=== PATIENT | male | born 1980 | race African-American/Black ===

== ENCOUNTER 2019-02-02 01:16 | Inpatient (IN) | payer OTHER ==
[2019-02-02] VITALS (11 sets, daily range): BP systolic 110–149; BP diastolic 78–101
[~2019-02-02] VITALS: Ht 182.9 cm; Wt 63.5 kg
--- NOTE | ~2019-02-02 | EMS ---
[facility] [address] [place] [address] EMS Patient Care Report Name: KHOI ROLLINS Room #: 237-P ADM IN M.R.#: [id number] Admission: 02/02/19 ������������������ Attend Phys: Glenna Abel Discharge: ������������������ Date of : 76 Report #: [id number] THIS REPORT FOR: //name// Report Transmitted: 02/03/2019 09:10 EMS Care Summary [place], [place]/[facility] Incident [id number] @ 02/02/2019 00:48 Incident Location [address] [place] [address] [address] [place] [address] Patient KHOI ROLLINS Male, 38 Years 1980 Patient Address homeless Patient History Hypertension,Human Immunodeficiency Virus Disease (HIV/AIDS),Depression,Anxiety,Pancreatitis, Patient Allergies Acetaminophen,Morphine,Fentanyl,Ibuprofen,Other drug allergy, Patient Medications Other, Chief Complaint ABDOMINAL PAIN Disposition Transported No Lights/Leeds Dispatch Reason Abdominal Pain/Problems Transported To [facility] Narrative M30 DISPATCHED TO RESIDENCE ON A REPORT OF AN ABDOMINAL PAIN. UPON ARRIVAL ON SCENE EMS FIND 38/M PT STANDING OUTSIDE OF RESIDENCE. PT APPROACHED AMBULANCE WHEN EMS ARRIVED ON SCENE. PT STATED HE WAS HAVING ABDOMINAL PAIN, DIARRHEA, [facility] [address] [place] [address] EMS Patient Care Report Name: KHOI ROLLINS Room #: 237-P [facility] IN M.R.#: [id number] Admission: 02/02/19 ������������������ Attend Phys: Glenna Abel Discharge: ������������������ Date of : 76 Report #: [id number] AND VOMITING FOR THE PAST COUPLE DAYS WITH NO RELIEF IN SYMPTOMS. PT STATED HE BELIEVED THERE MIGHT HAVE BEEN WHAT HE THOUGHT WAS BLOOD IN HIS VOMIT. PT AMBULATORY ON SCENE AND ASSISTED INSIDE AMBULANCE FOR FURTHER EVALUATION. PT SEATED ON EMS STRETCHER IN POSITION OF COMFORT WITH STRETCHER GUARDRAILS PLACED IN UPRIGHT LOCKED POSITION AND SEATBELTS FASTENED. PT VITALS OBTAINED, AND SUPPORTIVE CARE PROVIDED. PT CONDITION CONTINUALLY MONITORED EN ROUTE TO [facility]. NO NOTICEABLE CHANGES IN PT CONDITION DURING TRANSPORT TO RECEIVING FACILITY. UPON ARRIVAL TO [facility] PT MOVED INTO FACILITY ER ON EMS STRETCHER, WHERE PT WAS THEN ABLE TO SELF TRANSFER WITH ASSISTANCE FROM EMS ONTO ER HOSPITAL BED WITH INCIDENT. PT REPORT GIVEN TO RECEIVING NURSING STAFF AND TRANSFER OF PT CARE COMPLETED. Initial Vitals @01:00P: 109,R: 18,BP: 126/93,Pain: 10/10,GCS: 15,SpO2: 100,Revised Trauma: 12, @01:01P: 100,R: 18,BP: 137/84,Pain: 10/10,GCS: 15,CO: 23,SpO2: 100,Revised Trauma: 12, Assessments @01:00MENTAL:Time Oriented,Person Oriented,Event Oriented,Place Oriented,SKIN:HEENT:Head/Face: No Abnormalities,Neck/Airway: No Abnormalities,LUNG SOUNDS:General: Nausea,General: Diarrhea,General: Vomiting,Left Upper: Tenderness,Right Upper: Tenderness,Right Lower: Tenderness,Left Lower: Tenderness,ABDOMEN:General: Nausea,General: Diarrhea,General: Vomiting,Left Upper: Tenderness,Right Upper: Tenderness,Right Lower: Tenderness,Left Lower: Tenderness,PELVIS//GI:EXTREMITIES:Left Arm: No Abnormalities,Right Arm: No Abnormalities,PULSE:NEURO:No Abnormalities, Impression Abdominal Pain Procedures @00:58ALS AssessmentResponse: UnchangedSucceeded@00:59StretcherResponse: Unchanged Timeline 00:46,Call Received 00:46,Dispatch Notified 00:48,Dispatched 00:49,En Route 00:57,On Scene 00:57,At Patient 00:58,ALS Assessment,Response: UnchangedSucceeded, 00:59,Stretcher,Response: Unchanged 01:00,BP: 126/93 M,PULSE: 109,RR: 18 R,SPO2: 100 Ox,ETCO2: ,BG: ,PAIN: 10,GCS: 15, 01:01,Depart Scene [address] [address] EMS Patient Care Report Name: KHOI ROLLINS Room #: 237-P ADM IN R.#: [id number] Admission: 02/02/19 ������������������ Attend Phys: Glenna Abel Discharge: ������������������ Date of : 76 Report #: [id number] 01:01,BP: 137/84 M,PULSE: 100,RR: 18 R,SPO2: 100 Ox,ETCO2: ,BG: ,PAIN: 10,GCS: 15, 01:13,At Destination 01:25,Call Closed Disclaimer v1.1 Copyright 2019 [employer] This EMS Care Summary contains data elements from the applicable legal record (which may be displayed differently). It is designed to provide pertinent information for the following purposes: continuity of care, clinical quality, and state data reporting. The complete legal record is available to ED staff and administrators of the receiving hospital in [employer] Patient Tracker. All data is provided "as is."
[~2019-02-02 01:16] MED LIST: AMLODIPINE; AMLODIPINE BESYL5 MG; ANTIVIRAL PO; ASPIR 8181 MG PO; ASPIRIN81 M2 PO; AUGMENTIN 875-1 EACH PO; BACTRIM DS TAB1 EACH PO; BENTYL 20 MG TA20 M1 PO; CARAFATE 1 GM TA1 GM PO; CARAFATE 11 GM/10 M1 PO; CARVEDILOL3.125 MG PO; CIPROFLOXACIN500 M1 PO; CIPROFLOXIN HC2.5 M1 OTIC; COREG6.25 MG PO; COZAAR 50 MG TA50 M1 PO; CREON; CYMBALTA20 MG; DIFLUCAN200 MG PO; FOLIC ACID1 MG PO; HYDROXYZINE HCL10 M1; KEFLEX500 M1 PO; LEVAQUIN 500 M500 MG PO; LEVAQUIN 750 M750 MG PO; LIDOCAINE1 EACH TRANSDERM; LIDOPATCH1 EACH TOP; LISINOPRIL2.5 MG PO; MS CONTIN 60 MG60 M1; NORVASC5 MG PO; ONDANSETRON HCL4 M2 PO; OXYCODON-ACETA1 EAC1 PO; OXYCODONE HCL 55 MG PO; OXYCODONE HCL E15 MG PO; OXYCODONE HCL10 MG PO; OXYCODONE HCL30 MG; OXYCONTIN10 M1 PO; OXYCONTIN20 M1 PO; PANCRELIPASE PO; PANTOPRAZOLE SO40 M1 PO; PHENADOZ25 MG RC; PRILOSEC 20 MG20 MG PO; PROMS25 WY RECTAL; PROTONIX40 M1 PO; REGLAN 10 MG TA10 MG PO; REMERON15 M1; REMERON15 M2 PO; REMERON15 MG PO; SCOPOLAMINE1 EACH TRANSDERM; SPIRONOLACTONE25 MG PO; STRIBILD TABLE1 EACH PO; TRAMADOL 50 MG50 MG PO; TRANSDERM-SCOP1 EACH TRANSDERM; VANCOCIN 125 M125 M1 PO; VITAMIN B-1100 M1 PO; ZANTAC 150MG T150 M1; ZANTAC 150MG T150 MG PO; ZOFRAN ODT4 MG PO; ZOFRAN4 MG PO; ZPAK PO
[2019-02-02 02:08] LABS: HEMATOCRIT 26.8 % (42.0-52.0); HEMOGLOBIN 8.5 gm/dL (14.0-18.0); MCHC 31.7 g/dL (28.0-37.0); RDW 19.4 % (10.5-14.5)
[2019-02-02 02:10] LABS: ABSOLUTE NEUTROPHILS 1.4 thou/uL (1.4-8.2); BASOPHILS 1.8 % (0.0-2.0); EOSINOPHILS 1.5 % (0.0-3.0); LYMPHOCYTES 50.2 % (24.0-44.0); MCH 26.1 pg (26.0-34.0); MCV 82.3 fL (80.0-100.0); MONOCYTES 7.2 % (1.0-8.0); PLATELET COUNT 232 thou/uL (150-400); POLYS 39.3 % (36.0-66.0); RBC 3.26 mil/uL (4.50-6.00); WBC 3.6 thou/uL (4.0-11.0)
[2019-02-02 02:11] LABS: URINE BILIRUBIN NEGATIVE (Negative); URINE BLOOD NEGATIVE (Negative); URINE CLARITY CLEAR; URINE COLOR YELLOW; URINE GLUCOSE-RANDOM* NEGATIVE (Negative); URINE KETONES NEGATIVE (Negative); URINE LEUKOCYTES-REFLEX NEGATIVE (Negative); URINE NITRITE-REFLEX NEGATIVE (Negative); URINE PROTEIN (DIPSTICK) NEGATIVE (Negative); URINE SPECIFIC GRAVITY <= 1.005 (1.005-1.035); URINE UROBILINOGEN 0.2 E.U./dl (0.2-1.0)
[2019-02-02 02:17] LABS: ANION GAP 12 mmol/L (7-16); BUN 6 mg/dL (7-18); CALCIUM 8.6 mg/dL (8.5-10.1); CHLORIDE 100 mmol/L (98-107); CO2 24 mmol/L (21-32); CREATININE 0.7 mg/dL (0.7-1.3); GLUCOSE 95 mg/dL (74-106); POTASSIUM 3.5 mmol/L (3.5-5.1); SODIUM 136 mmol/L (136-145)
[2019-02-02 02:19] LABS: AMP/METHAMP Negative (Negative); BARBITURATES Negative (Negative); BENZODIAZEPINES Negative (Negative); COCAINE Negative (Negative); METHADONE Negative (Negative); OPIATES Negative (Negative); PCP Negative (Negative)
[2019-02-02 02:29] LABS: ALBUMIN 2.8 g/dL (3.4-5.0); LIPASE 242 U/L (73-393); SGOT 36 U/L (15-37); SGPT 23 U/L (30-65); TOTAL BILIRUBIN 0.1 mg/dL (<0.1-1.0); TOTAL PROTEIN 7.1 g/dL (6.4-8.2); TROPONIN-I 0.06 ng/mL (<0.06)
[2019-02-02 02:30] LABS: APTT 27.6 Seconds (24.5-32.8)
[2019-02-02 02:42] LABS: SALICYLATE 7.4 mg/dL (2.8-20.0)
[2019-02-02] MEDS ORDERED: PRILOSEC OTC20 MG PO (04:43)
[2019-02-02] MEDS ORDERED: NORCO 5-325 TA1 EAC1 PO (04:43)
[2019-02-02] MEDS ORDERED: ONDANSETRON ODT8 MG PO (04:43)
[2019-02-02 05:28] LABS: PHOSPHORUS 4.3 mg/dL (2.5-4.9)
[2019-02-02 05:56] LABS: FOLIC ACID 15.2 ng/mL (8.6-58.9)
[2019-02-02 06:44] LABS: HEMOGLOBIN 9.2 gm/dL (14.0-18.0); WBC 3.4 thou/uL (4.0-11.0)
[2019-02-02 06:46] LABS: HEMATOCRIT 29.7 % (42.0-52.0); MCH 25.7 pg (26.0-34.0); MCHC 30.9 g/dL (28.0-37.0); MCV 83.3 fL (80.0-100.0); PLATELET COUNT 249 thou/uL (150-400); RBC 3.57 mil/uL (4.50-6.00); RDW 19.3 % (10.5-14.5)
--- NOTE | 2019-02-02 08:13 | EKG ---
[address] [address] ELECTROCARDIOGRAM REPORT Name: AYOKHOI Newberry Room #: 170-9 ADM IN M.R.#: [id number] ������������������ Admission: 02/02/19 ������������������ Attend Phys: Oscar Be MD Discharge: ������������������ Date of : 76 Report #: [id number] ����������������������������������������������������������������� [id number] THIS REPORT FOR: //name// [facility] ED Test Date: 2019-02-02 Test Time: 03:01:09 Pat Name: KHOI RLOLINS Department: Room: 170 Gender: M Web Producer: monica : 1980 Requested By: Ernst Clayton Order Number: [id number] MD: Papa Waddell Measurements Intervals [place] Rate: 100 P: 49 NM: 154 QRS: 9 QRSD: 93 T: 44 QT: 368 QTc: 475 Interpretive Statements Sinus tachycardia Otherwise normal tracing No previous ECG available for comparison Electronically Signed On 02-02-2019 8:12:53 CDT by Papa Waddell [email or web address] ��������������������������������������������� <ELECTRONICALLY SIGNED> ���������������������������������������� By: Papa Waddell MD, [facility] ��������������������������������������������� 02/02/19 0812 030 030 Papa Waddell MD, FACC /EPI
[2019-02-02 08:38] LABS: ABSOLUTE NEUTROPHILS 1.7 thou/uL (1.4-8.2)
[2019-02-02 08:39] LABS: ANISOCYTOSIS 2+
[2019-02-02 08:40] LABS: ATYPICAL LYMPHS 2 %
[2019-02-02 11:10] LABS: % SATURATION 3 % (20-39); IRON 11 ug/dL (65-175); TIBC 333 ug/dL (250-450)
[2019-02-02 11:34] LABS: URINE BILIRUBIN NEGATIVE (Negative); URINE BLOOD NEGATIVE (Negative); URINE CLARITY CLEAR; URINE COLOR YELLOW; URINE GLUCOSE-RANDOM* NEGATIVE (Negative); URINE KETONES NEGATIVE (Negative); URINE LEUKOCYTES NEGATIVE (Negative); URINE NITRITE NEGATIVE (Negative); URINE PROTEIN (DIPSTICK) TRACE (Negative); URINE SPECIFIC GRAVITY <= 1.005 (1.005-1.035); URINE UROBILINOGEN 0.2 E.U./dl (0.2-1.0)
--- NOTE | 2019-02-02 13:36 | NUR ---
1210-RECEIVED PT FROM E.R.--VW
--- NOTE | 2019-02-02 17:21 | NUR ---
CALL TO EARLIER W UPDATE-NOT COVERING. CALL TO VIA BEEPER FOR UPDATE.ATIVAN FOR INCREASING RESTLESSNESS,HIGH CIWA.--VW
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
--- NOTE | 2019-02-02 18:40 | NUR ---
RETURNED CALL,ORDERS NOTED.--VW
--- NOTE | 2019-02-02 19:49 | NUR ---
WILL DO MRSA SWAB p NEXT DOSE OF ATIVAN.CARE TURNED OVER TO ONCOMING RN.--VW
[2019-02-03] VITALS (15 sets, daily range): BP systolic 108–144; BP diastolic 82–103
[2019-02-03 04:07] LABS: CALCIUM 8.5 mg/dL (8.5-10.1); CREATININE 0.6 mg/dL (0.7-1.3); POTASSIUM 4.1 mmol/L (3.5-5.1)
[2019-02-03 04:14] LABS: HEMATOCRIT 27.8 % (42.0-52.0); HEMOGLOBIN 8.7 gm/dL (14.0-18.0); MCH 26.1 pg (26.0-34.0); MCHC 31.4 g/dL (28.0-37.0); MCV 83.1 fL (80.0-100.0); RBC 3.34 mil/uL (4.50-6.00); RDW 19.2 % (10.5-14.5); WBC 6.3 thou/uL (4.0-11.0)
--- NOTE | 2019-02-03 08:08 | NUR ---
ASSUMED CARE OF PT AT 1900. PT SEDATED ON PRECEDEX PER ORDERS. PT ABLE TO IDENTIFY SELF. HE AKNOWLEDGES THAT HE IS AT A HOSPITAL, BUT DOES NO RECALL WHAT HOSPITAL FACILITY HE IS AT. PT IS ALSO FORGETFUL ON CURRENT HOSPITAL ADMISSION CIRCUMSTANCES AND NEED TO BE REMIDED EVERY TIME HE AWAKES. PT SR ON THE MONITOR. BP ELEVATED. ATIVAN GIVEN PER [facility] PROTOCOL. PT HAS BEEN COMPLAININ OF UPPER ABDOMINAL PAIN, WITH IMPROVEMENT WITH HYDROMORPHONE. PT APPEARS TO RESPOND TO VERBAL LIMIT SET BY RN. NO SIGNS OF BLEEDING NOTED THROUGH OUT THE SHIFT. PT MAKING PROGRESS TOWARDS GOALS.
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
[2019-02-03 19:07] LABS: CD3 % 92.7 % (57.5-86.2); CD4 % 50.6 % (30.8-58.5); CD4:CD8 1.19 (0.92-3.72); CD8 % 42.7 % (12.0-35.5)
[2019-02-04] VITALS (20 sets, daily range): BP systolic 119–153; BP diastolic 68–99
--- NOTE | 2019-02-04 05:27 | NUR ---
ASSUMED CARE OF PATIENT AT 1900. VSS, AFEBRILE. EXTREMELY UPSET THAT THE PHYSICIAN WOULD NOT GIVE HIM IV PAIN MEDS. OFFERED TRAMAADOL. REFUSED. STATES HIS STOMACH IS KILLING HIM. REQUESTS FOOD AND DRINK FREQUENTLY. Michelle ERAZO COURT RECORDER TO BEDSIDE, SPOKE WITH PATIENT ABOUT IV MEDICATION. DID ORDER ONE DOSE TORADOL. SEEMED TO HAVE DESIRED EFFECT PATIENT SLEPT OFF AND ON THROUGH THE NIGHT. DOES NOT APPEAR TO BE IN WITHDRAWAL AT THIS TIME, RESTING AND WATCHING TV. OF 529 HAS NOT ASKED FOR ANYMORE PAIN MEDS. STILL WAITING ON STOOL SAMPLE FOR OCCULT BLOOD. PROGRESSING SLOWLY TOWARDS POC GOALS.
[2019-02-04 05:34] LABS: HEMATOCRIT 25.8 % (42.0-52.0); HEMOGLOBIN 8.1 gm/dL (14.0-18.0); MCH 26.2 pg (26.0-34.0); MCHC 31.4 g/dL (28.0-37.0); MCV 83.4 fL (80.0-100.0); RBC 3.09 mil/uL (4.50-6.00); RDW 19.3 % (10.5-14.5); WBC 6.7 thou/uL (4.0-11.0)
[2019-02-04 05:45] LABS: CALCIUM 8.9 mg/dL (8.5-10.1); CREATININE 0.8 mg/dL (0.7-1.3); MAGNESIUM 1.9 mg/dL (1.8-2.4); PHOSPHORUS 3.3 mg/dL (2.5-4.9); POTASSIUM 4.1 mmol/L (3.5-5.1)
[2019-02-04 09:07] LABS: HAV IgM AB (ANTI-HAV IgM) Negative (Negative); HEPATITIS B SURFACE AG Negative (Negative); HEPATITIS C VIRUS AB 0.1 (0.0-0.9)
[2019-02-04] MEDS ORDERED: COZAAR 25 MG TA25 M1 PO (09:24)
[2019-02-04] MEDS ORDERED: TRAZODONE HCL50 MG PO (09:25)
[2019-02-04] MEDS ORDERED: CYMBALTA60 MG PO (09:26)
[2019-02-04] MEDS ORDERED: REMERON 30 MG T30 M1 PO (09:26)
--- NOTE | 2019-02-04 18:20 | NUR ---
Dr. Will called for update re: medical records from [place]. Reports communicated to MD. Decision made to perform CT abd and pelvis with IV and PO contrast to evalulate continued severe abdominal pain.
--- NOTE | 2019-02-04 18:50 | NUR ---
1st bottle oral contrast completed.
--- NOTE | 2019-02-04 21:00 | NUR ---
PATIENT ALERT AND ORIENTED X4, PAIN MILDLY CONTROLLED WITH MEDICATION. ON ROOM AIR. UP WITH STANDBY ASSISTANCE, STEADY ON FEET. TOOK PATIENT TO CAT SCAN, AWAITING RESULTS. REPORT GIVEN TO ONCOMING NURSE, TRANSFERRED TO ICU POD 3.
--- NOTE | 2019-02-05 03:25 | NUR ---
ASSUMED PT CARE AT ABOUT 2030. PT A/OX4, VITAL SIGN STABLE, ASSESSMENT CHARTED. PT COMPLAINED OF GENRALIZED ABDOMINAL PAIN, PAIN ADEQAUTELY MANAGED WITH PAIN MEDICATION. CIWA PROTOCOL IN PLACE, PT ASSESSED FOR WITHDRAWAL NEEDED. NICOTINE PATCH ORDERED AND GIVEN. PT REQUESTED TO GO OUTSIDE AND SMOKE. PT EDUCATED ON HOSPITAL POLICY REGARDING SMOOKING, WELL BENEFITS OF NOT SMOOKING. PT VERBALIZED UBDERSTANDING. PT OTHERWISE RESTED WELL THROUGH THE NIGHT. PROGRESSING TOWARD PLAN OF CARE. WILL CONTINMUE TO MONITOR.
[2019-02-05 04:33] VITALS: BP 142/96
[2019-02-05 07:20] VITALS: BP 140/98
[2019-02-05 11:13] VITALS: BP 111/81
[2019-02-05 16:13] VITALS: BP 138/99
--- NOTE | 2019-02-05 17:09 | HC ---
[facility] [place] [address] CONSULTATION Name: SHAWNYENNIKHOI Newberry Room #: 249-P [facility] IN M.R.#: [id number] Admission: 02/02/19 ������������������ Attend Phys: Glenna Abel Discharge: ������������������ Date of : 76 Report #: [id number] THIS REPORT FOR: //name// CC: SHANIQUE physician/PCP Glenna Abel DATE OF SERVICE: 02/04/2019 INFECTIOUS DISEASE CONSULTATION REASON FOR CONSULTATION: I was asked to evaluate concerning HIV infection and diarrhea. HISTORY OF PRESENT ILLNESS: The patient is a 38-year-old, on Stribild antiretroviral program longstanding for HIV infection, treated at [facility]. Also, has a history of chronic pancreatitis, alcohol abuse and polysubstance abuse. He presented on 02/02/2019 with complaints of hematemesis. He reports about 2-month history of diarrhea. Could not give much details otherwise. He has been in and out of multiple hospitals over the last several months. He has had workup including upper GI evaluation CT scans. No definitive diagnosis was established other than his chronic pancreatitis and upper GI erosions thought most likely related to his alcohol use. On presentation here, his stools were negative for blood. GI service is evaluating. CT scan showed evidence of constipation with large amount of stool in the colon. He has had soft stools today. No nausea or vomiting. Does complain of abdominal pain and has been asking for narcotics. The patient states that his HIV has been under reasonable control. It is undetectable. Does not know his CD4 count. ALLERGIES: CLONIDINE, TYLENOL, FENTANYL, IBUPROFEN, MORPHINE. MEDICATIONS: As noted on his MAR, on Stribild. He is on no prophylactic, antibiotic, antifungal agents. PAST MEDICAL HISTORY: Hypertension, HIV, ETOH, pancreatitis. FAMILY HISTORY: Noncontributory. SOCIAL HISTORY: Smoker of cigarettes and alcohol use. No tuberculosis exposure reported. REVIEW OF SYSTEMS: Denies any cough or sputum production. No chest pain or palpitations. No dysuria or frequency. No back pain. No other neurologic complaints. No rashes. Denies diabetes or thyroid disease. No bruising or bleeding issues outside of what is noted above. Denies any visual changes, headaches. Generally does not feel well. [facility] [address] [place] [address] CONSULTATION Name: KHOI ROLLINS Room #: 249-P [facility] IN [facility].#: [id number] Admission: 02/02/19 ������������������ Attend Phys: Glenna Abel Discharge: ������������������ Date of : 76 Report #: [id number] PHYSICAL EXAMINATION: VITAL SIGNS: He is afebrile and hemodynamically stable. GENERAL: He is alert, cooperative and pleasant, in no acute distress. He is lying in bed in the ICU. SKIN: Without rash or decubitus. No palpable adenopathy. HEENT: Eyes, without scleral icterus. Mouth without mucositis. NECK: Supple. LUNGS: Clear. HEART: Regular, without murmur, gallop or rub. ABDOMEN: Soft, no appreciable masses or hepatosplenomegaly. GENITOURINARY: External genitalia unremarkable without lesion. RECTAL: Not performed. EXTREMITIES: Without clubbing, cyanosis or edema. NEUROLOGIC: Nonfocal with no cranial nerve abnormalities. Strength in his upper and lower extremities was normal. Sensation intact. PSYCHIATRIC: Mood was normal without anxiety or evidence of depression. LABORATORY STUDIES: Reviewed. His hemoglobin is 8.1, white count 6.7, platelet count 172,000. Creatinine 0.8. Hepatitis A, B and C was negative. CT scan of the abdomen and pelvis with contrast showed thickening of the gastric antrum with constriction. Minimal left basilar ground glass infiltrate, minimal pneumobilia, chronic pancreatitis changes. Urinary bladder wall thickening thought due to incomplete distention, no bowel wall thickening. Stool studies were obtained. IMPRESSION: 1. A 38-year-old with human immunodeficiency virus, on treatment undetectable virus load, presents with complaints of diarrhea and hematemesis, so far no evidence of further bleeding. His constipation has resolved, now having loose soft stool. 2. Alcohol intoxication. 3. Gastrointestinal bleeding history. Unclear at this point in time if he is actually having diarrhea. There is no evidence of colitis on CT scan. He has had an upper endoscopy, which showed previous erosive disease. RECOMMENDATIONS: We will await CD4 count and check stool studies for bacterial culture, ova and parasite. We will start there and await further GI workup. May need lower endoscopy procedure to further evaluate this process. CMV cancer causes problem, but if his CD4 count is normal, I would think this would be less likely. He does have chronic pancreatitis and may well be loose stools related [address] [address] CONSULTATION Name: AYOKHOI Newberry Room #: 249-P ADM IN M.R.#: [id number] Admission: 02/02/19 ������������������ Attend Phys: Glenna Abel Discharge: ������������������ Date of : 76 Report #: [id number] to pancreatic insufficiency. We will observe off antibiotics. His antiretroviral will be restarted. ��������������������������������������������� <ELECTRONICALLY SIGNED> ���������������������������������������� By: Ernst Ann MD ��������������������������������������������� 02/05/19 1709 2131 0235 Ernst Ann MD /nt
--- NOTE | 2019-02-05 17:12 | NUR ---
PT IS BEEN SEEN BY INFECTIOUS DISEASE. GI AND HOSPITALSIT TODAY COMPLAINS OF ABDOMINAL PAIN TRAMADOL GIVEN . RECTAL SUPOSITORY GIVEN AND SMALL BOWEL MOVEMENT NOTED. UP IN ROOM VOIDS PER URINAL. PT IS HIV POSITIVE FAMILY IS SUPOSE TO BRING HIV MEDS BUT NOBODY EVER CAME. VITALS STABLE. WILL CONTINUE TO ASSESS AND MONITOR PER NURSING.
[2019-02-05 20:00] VITALS: BP 151/99
--- NOTE | 2019-02-06 02:56 | NUR ---
ASSUMED CARE AT START OF SHIFT PT REQUESTING IV PAIN MEDICATION , EXPLAIN TO PT THAT MD STOPPED IV MEDICATION AND PO WAS AVAILABLE, PT BECAME AGITATED AND RESTLESS , REQUESTED ICE CREAM AND GRAMHAM CRACKERS , COMPUTER SYSTEMS ENGINEER CALLED AND VISTRIAL GIVEN FOR RESTLESSNESS. PT SOON FELL ASLEEP, HAD TO AWAKEN PT TO TAKE VISTRAIL. INFORM PT THAT STOOL SAMPLE IS NEEDED AND COLLECTION HAT WAS PLACED IN TOLIET , DISCUSSED PLAN OF CARE WITH PT , VERBALIZED UNDERTSANDING AND AGREEABLE. PT RESTED WELL, PT ATE APPORX 6 CONTAINERS OF VANILLA ICE CREAM AND TOLERATED WELL WITH ABD PAIN OR NAUSEA. WILL CONINTUE TO MONITOR AND WILL REPORT CHANGES OR ABNORMAL FINDINGS.
[2019-02-06 04:28] VITALS: BP 129/93
[2019-02-06 08:00] VITALS: BP 148/99
[2019-02-06] MEDS ORDERED: REMERON15 MG PO (09:57)
[2019-02-06] MEDS ORDERED: TRAMADOL 50 MG50 MG PO (09:57)
[2019-02-06] MEDS ORDERED: PANCREAZE DR 11 EAC2 PO (09:58)
[2019-02-06 10:53] VITALS: BP 148/99
[2019-02-06 11:14] VITALS: BP 148/99
--- NOTE | 2019-02-06 11:14 | NUR ---
PATIENT ALERT AND ORIENTED X4, PAIN CONTROLLED. ON ROOM AIR. UP INDEPENDENTLY. DISCHARGE INSTRUCTIONS DISCUSSED, PICC LINE REMOVED. PRESCRIPTIONS GIVEN. PATIENT VERBALIZED UNDERSTANDING. NO SIGNS OF ACUTE DISTRESS NOTED. TRANSFERRED BY STAFF TO RIDE HOME.
== END 2019-02-06 11:17 | disposition home or self-care (01) | DRG 378 ==
LOC: ER 01:16 → ICU 05:06 → EROBS 05:06 → ICU 11:46
PROVIDERS: Emergency Medicine; Internal Medicine Gastroenterology; Nurse Practitioner; ADMIT Hospitalist
DX: K92.2 Gastrointestinal hemorrhage, unspecified (principal); I42.9 Cardiomyopathy, unspecified; E44.0 Moderate protein-calorie malnutrition; Z68.1 Body mass index [BMI] 19.9 or less, adult; M87.852 Other osteonecrosis, left femur; M87.851 Other osteonecrosis, right femur; K86.1 Other chronic pancreatitis; I10 Essential (primary) hypertension; F32.9 Major depressive disorder, single episode, unspecified; F41.9 Anxiety disorder, unspecified; F10.120 Alcohol abuse with intoxication, uncomplicated; D64.9 Anemia, unspecified; K59.00 Constipation, unspecified; D50.9 Iron deficiency anemia, unspecified; K76.0 Fatty (change of) liver, not elsewhere classified; R19.7 Diarrhea, unspecified; K59.8 Other specified functional intestinal disorders; Z21 Asymptomatic human immunodeficiency virus [HIV] infection status; F17.210 Nicotine dependence, cigarettes, uncomplicated; Z76.5 Malingerer [conscious simulation]; Z79.899 Other long term (current) drug therapy; Z88.5 Allergy status to narcotic agent; Z88.8 Allergy status to other drugs, medicaments and biological substances
CPT/HCPCS: 10078; 10203; 27000

== ENCOUNTER 2019-02-11 19:11 | Emergency (ER) | payer OTHER ==
[~2019-02-11] VITALS: Ht 182.9 cm; Wt 56.7 kg
[~2019-02-11 19:11] MED LIST changes: +COZAAR 25 MG TA25 M1 PO; +CYMBALTA60 MG PO; +NORCO 5-325 TA1 EAC1 PO; +ONDANSETRON ODT8 MG PO; +PANCREAZE DR 11 EAC2 PO; +PRILOSEC OTC20 MG PO; +REMERON 30 MG T30 M1 PO; +TRAZODONE HCL50 MG PO
[2019-02-11 19:54] LABS: URINE BILIRUBIN NEGATIVE (Negative); URINE BLOOD NEGATIVE (Negative); URINE CLARITY CLEAR; URINE GLUCOSE-RANDOM* NEGATIVE (Negative); URINE KETONES NEGATIVE (Negative); URINE LEUKOCYTES 1+ (Negative); URINE NITRITE NEGATIVE (Negative); URINE PROTEIN (DIPSTICK) NEGATIVE (Negative); URINE SPECIFIC GRAVITY <= 1.005 (1.005-1.035); URINE UROBILINOGEN 0.2 E.U./dl (0.2-1.0)
[2019-02-11 19:55] LABS: URINE COLOR COLORLESS
[2019-02-11 20:10] LABS: SQUAMOUS >10 Many /LPF (0-3); URINE RBC 0-2 Rare /HPF (0-2); URINE WBC 6-15 Few /HPF (0-5)
[2019-02-11 20:11] LABS: BACTERIA 1-9 Few /HPF (None Seen); CASTS None Seen /LPF (None Seen); CRYSTALS None Seen /LPF (None Seen)
[2019-02-11 20:47] VITALS: BP 111/78
== END 2019-02-11 20:47 | disposition home or self-care (01) ==
LOC: ER 19:11
PROVIDERS: Nurse Practitioner
DX: R10.11 Right upper quadrant pain (principal); F17.210 Nicotine dependence, cigarettes, uncomplicated; I10 Essential (primary) hypertension; F32.9 Major depressive disorder, single episode, unspecified; F41.9 Anxiety disorder, unspecified; I42.9 Cardiomyopathy, unspecified; Z88.8 Allergy status to other drugs, medicaments and biological substances; Z88.6 Allergy status to analgesic agent; Z88.4 Allergy status to anesthetic agent; Z88.5 Allergy status to narcotic agent; Z21 Asymptomatic human immunodeficiency virus [HIV] infection status

== ENCOUNTER 2019-02-24 01:10 | Emergency (ER) | payer OTHER ==
[~2019-02-24] VITALS: Ht 182.9 cm; Wt 59.0 kg
[2019-02-24 02:07] LABS: HEMATOCRIT 33.2 % (42.0-52.0); HEMOGLOBIN 10.6 gm/dL (14.0-18.0); MCH 27.9 pg (26.0-34.0); MCHC 31.9 g/dL (28.0-37.0); MCV 87.4 fL (80.0-100.0); PLATELET COUNT 204 thou/uL (150-400); WBC 4.2 thou/uL (4.0-11.0)
[2019-02-24 02:13] LABS: URINE BILIRUBIN NEGATIVE (Negative); URINE BLOOD NEGATIVE (Negative); URINE CLARITY CLEAR; URINE COLOR YELLOW; URINE GLUCOSE-RANDOM* NEGATIVE (Negative); URINE KETONES NEGATIVE (Negative); URINE LEUKOCYTES-REFLEX NEGATIVE (Negative); URINE NITRITE-REFLEX NEGATIVE (Negative); URINE PROTEIN (DIPSTICK) NEGATIVE (Negative); URINE SPECIFIC GRAVITY <= 1.005 (1.005-1.035); URINE UROBILINOGEN 0.2 E.U./dl (0.2-1.0)
[2019-02-24 02:14] LABS: ANION GAP 12 mmol/L (7-16); BUN 7 mg/dL (7-18); CALCIUM 8.9 mg/dL (8.5-10.1); CHLORIDE 100 mmol/L (98-107); CO2 24 mmol/L (21-32); CREATININE 0.8 mg/dL (0.7-1.3); GLUCOSE 95 mg/dL (74-106); SODIUM 136 mmol/L (136-145)
[2019-02-24 02:20] LABS: ALBUMIN 3.2 g/dL (3.4-5.0); DIRECT BILIRUBIN < 0.1 mg/dL (<0.1-0.3); LIPASE 162 U/L (73-393); SGOT 43 U/L (15-37); SGPT 24 U/L (30-65); TOTAL BILIRUBIN < 0.1 mg/dL (<0.1-1.0); TOTAL PROTEIN 7.6 g/dL (6.4-8.2)
[2019-02-24 02:35] LABS: ABSOLUTE NEUTROPHILS 3.1 thou/uL (1.4-8.2); ANISOCYTOSIS 3+; PLATELET ESTIMATE NORMAL; POIKILOCYTOSIS 1+; POLYCHROMASIA 1+
[2019-02-24 02:36] LABS: LARGE PLATELETS FEW
[2019-02-24] MEDS ORDERED: BENTYL 20 MG TA20 M1 PO (05:01)
[2019-02-24] MEDS ORDERED: MOBIC15 MG PO (05:01)
[2019-02-24 05:39] VITALS: BP 118/84
== END 2019-02-24 05:42 | disposition home or self-care (01) ==
LOC: ER 01:10
PROVIDERS: Emergency Medicine
DX: K52.9 Noninfective gastroenteritis and colitis, unspecified (principal); F10.10 Alcohol abuse, uncomplicated; F17.210 Nicotine dependence, cigarettes, uncomplicated; I10 Essential (primary) hypertension; F32.9 Major depressive disorder, single episode, unspecified; F41.9 Anxiety disorder, unspecified; I42.9 Cardiomyopathy, unspecified; Z88.8 Allergy status to other drugs, medicaments and biological substances; Z88.6 Allergy status to analgesic agent; Z88.4 Allergy status to anesthetic agent; Z88.5 Allergy status to narcotic agent; Z21 Asymptomatic human immunodeficiency virus [HIV] infection status

== ENCOUNTER 2019-04-30 20:03 | Inpatient (IN) | payer OTHER ==
[~2019-04-30] VITALS: Ht 182.9 cm; Wt 65.3 kg
[~2019-04-30 20:03] MED LIST changes: +MOBIC15 MG PO
[2019-04-30 20:04] VITALS: BP 148/91
[2019-04-30 20:38] LABS: URINE BILIRUBIN NEGATIVE (Negative); URINE BLOOD NEGATIVE (Negative); URINE CLARITY CLEAR; URINE COLOR YELLOW; URINE GLUCOSE-RANDOM* NEGATIVE (Negative); URINE KETONES NEGATIVE (Negative); URINE NITRITE-REFLEX NEGATIVE (Negative); URINE PROTEIN (DIPSTICK) NEGATIVE (Negative); URINE UROBILINOGEN 0.2 E.U./dl (0.2-1.0)
[2019-04-30 20:39] LABS: URINE LEUKOCYTES-REFLEX 1+ (Negative)
[2019-04-30 20:49] LABS: BACTERIA-REFLEX None Seen /HPF (None Seen); CASTS None Seen /LPF (None Seen); CRYSTALS None Seen /LPF (None Seen); MUCUS None Seen strn/LPF (None Seen); SQUAMOUS None Seen /LPF (0-3); URINE RBC None Seen /HPF (0-2); URINE WBC-REFLEX 0-5 Rare /HPF (0-5)
[2019-04-30 20:57] LABS: ABSOLUTE NEUTROPHILS 2.2 thou/uL (1.4-8.2); BASOPHILS 1.4 % (0.0-2.0); EOSINOPHILS 7.1 % (0.0-3.0); HEMATOCRIT 38.8 % (42.0-52.0); HEMOGLOBIN 12.5 gm/dL (14.0-18.0); LYMPHOCYTES 35.8 % (24.0-44.0); MCH 28.7 pg (26.0-34.0); MCHC 32.1 g/dL (28.0-37.0); MCV 89.2 fL (80.0-100.0); MONOCYTES 11.5 % (1.0-8.0); PLATELET COUNT 219 thou/uL (150-400); POLYS 44.2 % (36.0-66.0); RBC 4.35 mil/uL (4.50-6.00); WBC 4.9 thou/uL (4.0-11.0)
[2019-04-30 21:00] LABS: CALCIUM 9.6 mg/dL (8.5-10.1); CREATININE 0.7 mg/dL (0.7-1.3); POTASSIUM 5.3 mmol/L (3.5-5.1)
[2019-04-30 21:07] LABS: ALBUMIN 3.6 g/dL (3.4-5.0); TOTAL BILIRUBIN 0.2 mg/dL (<0.1-1.0); TOTAL PROTEIN 7.6 g/dL (6.4-8.2)
[2019-04-30 21:48] LABS: ANISOCYTOSIS 2+; LARGE PLATELETS OCCASIONAL
[2019-04-30 21:49] LABS: SCHISTOCYTES RARE
--- NOTE | 2019-04-30 22:34 | NUR ---
PT STATED HE IS ALLERGIC TO FENTANYL. DR CORDOVA NOTIFIED.
[2019-05-01 02:05] VITALS: BP 148/91
--- NOTE | 2019-05-01 02:06 | NUR ---
HAND OFF TOOL PRINTED TO FLOOR AT THIS TIME
[2019-05-01 02:49] VITALS: BP 142/106
--- NOTE | 2019-05-01 03:51 | NUR ---
ADMITTED FROM ER UNDER 'S CARE. PAULINA ERAZO MOBILITY ENGINEER FOR SAW PT IN ER. AXOX4. AD SHANNON. GAIT STABLE. NPO AT THIS TIME. PER PROMOTIONS ASSISTANT NO ICE CHIPS, ONLY MOUTH SWABS. SWABS AT BEDSIDE. NICOTINE PATCH AND ATIVAN ORDERED PER PROMOTIONS ASSISTANT ORDER. PT IS ONLY NO ALLERGIC TO DILAUDID AND ER PHYSICIAN ORDERD DILAUDID X 2 UNTIL ATTENDING MD IN AM CAN ADDREESS PAIN MANAGEMENT. NO VSS. ALL QUESTIONS AND CONCERNS ANSWERED. NO S/S ACUTE DISTRESS NOTED OR REPORTED AT THIS TIME. WILL CONT TO MONITOR FOR ANY CHANGES IN CONDITION.
[2019-05-01 08:03] VITALS: BP 133/90
[2019-05-01 09:13] LABS: MAGNESIUM 1.8 mg/dL (1.8-2.4); PHOSPHORUS 3.4 mg/dL (2.5-4.9)
[2019-05-01 15:11] VITALS: BP 141/103
[2019-05-01 19:41] VITALS: BP 140/106
--- NOTE | 2019-05-01 20:28 | NUR ---
PATIENT ALERT AND ORIENTED WITH ABDOMINAL PAIN REQUESTING HIGHTER DOSE OF DILAUDID IV AND WANTING TO EAT. PATIENT FREQUENTLY USING CALL LIGHT FOR REQUESTS AND WALKING TO NURSING STATIONS FOR REQUESTS. NO BM THIS SHIFT BUT FREQUENT URINATION AND CONTINUE PAIN IN UPPER ABDOMINAL QUADRANTS. ACTIVE BOWELS SOUND THROUGHOUT ABDOMEN. PRIMARY AND GI PROVIDERS AWARE OF PATIENT REQUESTS.
--- NOTE | 2019-05-02 03:03 | NUR ---
ASSUMED CARE AROUND 1914. AXOX4. PERSISTENT PAIN TO ABD. TX PER MD ORDER. NO S/S ACUTE DISTRESS NOTED OR REPORTED AT THIS TIME. WILL CONT TO MONITOR FOR ANY CHANGES CONDITION.
[2019-05-02 04:47] LABS: CALCIUM 9.2 mg/dL (8.5-10.1); CREATININE 0.7 mg/dL (0.7-1.3); MAGNESIUM 1.9 mg/dL (1.8-2.4); POTASSIUM 4.5 mmol/L (3.5-5.1)
[2019-05-02 04:57] LABS: HEMATOCRIT 38.7 % (42.0-52.0); HEMOGLOBIN 12.3 gm/dL (14.0-18.0); MCH 28.6 pg (26.0-34.0); MCHC 31.8 g/dL (28.0-37.0); RBC 4.3 mil/uL (4.50-6.00); RDW 19.3 % (10.5-14.5); WBC 3.6 thou/uL (4.0-11.0)
[2019-05-02 08:00] VITALS: BP 142/107
[2019-05-02 15:00] VITALS: BP 134/96
--- NOTE | 2019-05-02 16:22 | NUR ---
Assumed patient care at 0715. Patient has spent the entire shift resting in bed. His blood pressure has been in the higher range; he has been asymptomatic. Patient rates his abdominal pain at a level "nine." Patient has been given Oxycodone 5mg po and Ativan 1mg per IV push x's two, so far during this shift; he denies any relief, although he has been sleeping in between doses. Patient denies any nausea and/or vomiting. He has been eating well and consuming plenty of fluids. Will continue to monitor.
[2019-05-02 19:38] VITALS: BP 126/94
--- NOTE | 2019-05-03 00:02 | HC ---
[place] [address] CONSULTATION Name: KHOI ROLLINS Room #: 458-P [facility] IN ..#: [id number] Admission: 05/01/19 Attend Phys: Benoit Alaniz MD Discharge: Date of : 76 Report #: [id number] THIS REPORT FOR: //name// CC: SHANIQUE physician/PCP Benoit Alaniz DATE OF SERVICE: 05/01/2019 CONSULTATION: Infectious diseases. HISTORY OF PRESENT ILLNESS:Khoi Rollins is a 38-year-old -Azerbaijani male with HIV, who presents with recurring pancreatitis. The patient was last hospitalized in January of this year. The patient presents with nausea, vomiting and abdominal pain. At this time, he had diarrhea and bright red blood per rectum. He has been diagnosed with pancreatitis in the past. He has had diarrhea with this in the past. The patient notes that he ran out of his pancreatic supplement. From the HIV perspective, the patient is taking STRIBILD. He says he is compliant with the regimen, although his HIV doctor whose name he could not remember has "left town." He says he is able to continue to get refills from the pharmacy and has not missed doses. He is not sure when his last laboratory studies for HIV was done. He says, however, the labs are always "pretty good." He thinks his viral loads are undetectable and his CD4 counts are around 500. In the past, he has been followed through [facility]. SOCIAL HISTORY: The patient is unmarried. He does use tobacco. He initially said that he quit using alcohol. He was a little more ambiguous when I asked him about when his last drink of alcohol was. He has a past history of illegal drug use, but not for a long time, probably not for years. REVIEW OF SYSTEMS: The patient is very uncomfortable with his abdominal pain. Denies fevers, chills, sweats. No head or neck complaints. Denies cough, chest pain, shortness of breath. He did complain of nausea, vomiting, diarrhea, hematochezia, abdominal pain and bloating. No urinary complaints. PHYSICAL EXAMINATION: GENERAL: The patient appears uncomfortable, but not in any distress. VITAL SIGNS: He has been afebrile since coming to the hospital. SKIN: No rash, no lesions. ENT: Negative. HEART: Sounds are normal. LUNGS: Clear. ABDOMEN: Belly is somewhat distended, but soft. It is very tender. EXTREMITIES: Unremarkable. [address] [place] [address] CONSULTATION Name: KHOI ROLLINS Room #: 458-P [facility] IN [facility]#: [id number] Admission: 05/01/19 Attend Phys: Benoit Alaniz MD Discharge: Date of : 76 Report #: [id number] LABORATORY DATA: White count is 4.9, hemoglobin 12.5, platelet 219,000. His eosinophil count is 7%. Electrolytes, BUN and creatinine, liver function tests are normal. Urinalysis is negative. IMAGING: CT of the abdomen is consistent with chronic pancreatitis. ASSESSMENT AND PLAN: At this time, I think we need to continue the patient on his STRIBILD. I would encourage him to schedule an appointment at [facility], where his previous labs are, for followup. I hesitate to draw laboratory here as I am not too sure anyone will be available to follow up on his laboratory studies if there are problems. He is probably best served through the clinic at [place], where he could be assigned another resident. We will continue treating the pancreatitis and encourage alcohol abstinence. <ELECTRONICALLY SIGNED> By: Baldo Burnett MD 05/03/19 0002 2129 0044 Baldo Burnett MD /nt
--- NOTE | 2019-05-03 04:49 | NUR ---
ASSUMED CARE OF PT AT 1900HRS. PT IS AOX4 AND UP AD SHANNON. PT USES CALL LIGHT APPROPIATEY. PT REPORTED PAIN AND ANXIETY, AND PRN MEDS WERE USED TO TREAT. CIWA CHECKS DONE Q8 PER ORDER. PT WAS ABLE TO GET COMFORTABLE AND SLEEP PART OF THE SHIFT. VSS AND NO S/S OF ACUTE DISTRESS. WILL CONTINUE TO MONITOR.
[2019-05-03 07:30] VITALS: BP 136/99
[2019-05-03 15:10] VITALS: BP 138/95
--- NOTE | 2019-05-03 15:19 | NUR ---
PT ADMITTED RELATED TO ABDOMINAL PAIN, LOWER GI BLEED. CM REVIEWED CHART AND SPOKE WITH CARE TEAM. CM MET WITH PT AT BEDSIDE THIS DAY. PT IS A&O X4. PT INIDCATED HE LIVES IN AN APARTMENT WITH HIS AUNT WITH 10 STEPS TO ENTER AND NO STEPS INSIDE. 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 PT INDICATED NO DME OR HH HX. PT INIDCATED NO PCP AND WAS PROVIDED A [employer] [facility] PACKET. PT INDICATED HE PLANS TO RETURN HOME [place] MEDICALLY STABLE. CM TO FOLLOW INDICATED WITH DC PLANNING.
[2019-05-03 18:57] VITALS: BP 144/98
--- NOTE | 2019-05-03 19:55 | NUR ---
Assumed patient care at 0715. Vital signs have been stable. Patient continues to complain of severe abdominal pain, asks for his pain medication and Ativan before it is due. This nurse has been giving his pain medications every 4 hours. He has complained several times that he is not getting enough medications. He has been sleeping in between doses, as this nurse has been monitoring him. Dr Graham came to assess patient today. Patient began to moan and writhe in pain. He continued to do this the entire visit with Dr Graham. Dr Graham informed patient that his pain medications would not be increased. Patient was noted only one other time to display this kind of behavior; it was when a Trains Service Conductor stopped in to check on him. Patient has been noted to be resting quietly in between doses. He has came to the nurses station a few times this evening to try to convince this nurse that he needed his pain medication early. He has informed this nurse that "I am used to taking thirty milligrams of Oxycodone at home!" Reported this information to on-coming nurse.
[2019-05-04 00:21] VITALS: BP 137/93
--- NOTE | 2019-05-04 02:55 | NUR ---
ASSUMED CARE OF PT AT 1900HRS. PT IS AOX4 AND UP AD SHANNON. PT WAS ABLE TO COMPLETE BOWEL PREP. PT HAD SEVERAL BMS AND REPORTED SEEING BLOOD STOOL. PT PLACED NPO AT NM FOR COLONSCOPY IN THE AM. PT REPORTED PAIN AND ANXIETY, PRN MEDS USED WITH MINIMAL RELIEF PER PT. VSS AND NO S/S OF ACUTE DISTRESS. WILL CONTINUE TO MONITOR.
[2019-05-04 08:00] VITALS: BP 138/103
[2019-05-04 15:00] VITALS: BP 136/110
--- NOTE | 2019-05-04 16:32 | NUR ---
SHOULD PT BE MEDICALLY STABLE TO DC HOME THIS EVENING. PT WILL LIKELY NEED A CAB VOUCHER. NO OTHER NEEDS ARE ANTICIPATED UPON DC.
[2019-05-04] MEDS ORDERED: HYOSCYAMINE0.125 M1 PO (17:09)
[2019-05-04] MEDS ORDERED: PRENATAL PO (17:09)
[2019-05-04] MEDS ORDERED: VITAMIN B-1100 M2 PO (17:09)
[2019-05-04 17:49] VITALS: BP 136/110
--- NOTE | 2019-05-04 20:58 | NUR ---
Received awake on bed. Due medications given as prescribed. Complained of pain, due PRN pain meds given as prescribed. A+Ox4. On NPO- pt informed and aware. For colonoscopy today- consent signed, pt updated re: time of procedure. With SL at R UA- intact and flushing well. Up ad bryon. Bowel prep done as per warehouse supervisor 3rd shift nurse. Pt went down for colonoscopy- tolerated procedure well, transferred to bed safely. Missed medication from this AM given; tolerated regular diet- no nausea, no vomiting and abdominal pain noted. Dr Graham informed re: colonoscopy findings- will discharge pt after he talks to the gastro team. Discharge orders made. Pt refusing to go, informed charge nurse and co-staff, after they talked to the patient he finally agreed to go and someone is going to pick him up- Dr Graham updated. Discharge instructions, follow up schedule and prescriptions given and instructed to patient. IV discontinued by warehouse supervisor 3rd shift PUBLIC SERVICES ASSISTANT. Pt discharged with his personal belongings.
--- NOTE | 2019-05-06 17:06 | PATH ---
[facility] [address] [place] [address] PATHOLOGY RPT PROCEDURE Name: KHOI ROLLINS Room #: 458-P DIS IN M.R.#: [id number] Admission: 05/01/19 Date of : 76 Discharge: 05/04/19 Report #: [id number] Path Case #: [id number] L[facility] Accession Number: [id number] . 01 Material submitted: . colon - RANDOM BX OF COLON . 01 Clinical history: . Preop DX: Abd pain, pancreatitis Postop DX: Hemorroids R/O microscopic colitis . 02 Diagnosis: Large intestine mucosa, random colon R/O microscopic colitis, endoscopic biopsy: - Mild focal active colitis. - Negative for microscopic colitis. - Negative for dysplasia or malignancy. (IUV:evin; 05/06/2019) QMS 05/06/2019 1440 Local . 02 Comment: Sections of the colonic mucosa designated "random colon" show focal cryptitis, and a moderately cellular lamina propria composed predominantly of lymphocytes and plasma cells and occasional eosinophils. Surface ulceration is not identified. There are no crypt abscesses, granulomas or viral inclusions. The process affects all the fragments with a similar intensity. Given the description, the differential diagnosis includes focal active self-limited episode of colitis, an ongoing colitis due to a prior insult, medication-drug induced colitis, active colitis in a background of diverticulitis, as well as bowel preparation amongst other possibilities. Please correlate clinical as well as endoscopic findings. (IUV:evin; 05/06/2019) . 02 Electronically signed: . Kia De La Fuente MD, Pathologist NPI- [id number] . 01 Gross description: . Received in formalin labeled "Khoi Rollins marina BX in colon r/o microscopic colitis," are three fragments of davila-brown soft tissue measuring 0.8 x 0.3 x 0.2 cm in aggregate dimensions and ranging from 0.3 to 0.4 cm in maximum dimension. The specimen is submitted entirely in cassette A1. ([facility]; 05/05/2019) XDC/XDC 05/05/2019 0953 Local . [address] [address] PATHOLOGY RPT PROCEDURE Name: KHOI ROLLINS Room #: 458-P DIS IN M.R.#: [id number] Admission: 05/01/19 Date of : 76 Discharge: 05/04/19 Report #: [id number] Path Case #: [id number] Pathologist provided ICD-10: K52.9 . 02 CPT . 699014 Specimen Comment: A courtesy copy of this report has been sent to [phone], [phone] Specimen Comment: [phone] Specimen Comment: Report sent to and Performed at: [address] [facility], [place], [place] [id number] MD Castro Hall MD Phone: [phone] Performed at: [address] [facility] [id number] MD Kia De La Fuente MD Phone: [phone]
--- NOTE | 2019-05-12 08:11 | P ---
[facility] [place] [address] PROCEDURE REPORT Name: KHOI ROLILNS Room #: 458-P [facility] IN M.R.#: [id number] Admission: 05/01/19 Attend Phys: Glenna bAel Discharge: 05/04/19 Date of : 76 Report #: [id number] THIS REPORT FOR: //name// CC: BRANDEN [facility] physician/PCP Glenna Graham MD DATE OF SERVICE: 05/04/2019 PROCEDURE PERFORMED: Colonoscopy with biopsies. HISTORY OF PRESENT ILLNESS: The patient is a 38-year-old male who was admitted on 05/01/2019 with abdominal pain and hematochezia. 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 The patient ran out of his enzymes recently at home. He is back on enzymes here at the hospital. He stopped drinking alcohol several months ago, reportedly. A CT scan of his abdomen and pelvis was performed on 04/30/2019, it showed diffuse pancreatic calcification and dilation of the pancreatic duct consistent with chronic pancreatitis, no evidence of acute pancreatitis, nonspecific increase small bowel fluid, otherwise negative. The patient's hemoglobin at this time 12.3 on the . He has a history of HIV. He is on medications, but may not have been taking them recently. He also reports intermittent diarrhea. Plan is for colonoscopy. DESCRIPTION OF PROCEDURE: The risks and benefits of the procedure were explained to the patient, those risks including, but not limited to bleeding, perforation and the risk of sedation. He understood these risks and gave informed consent. Sedation was given using propofol per Anesthesia. Next, a digital rectal exam was initially performed, which was normal. Next, using the standard Olympus colonoscope, the scope was placed in the patient's anus and advanced under direct vision to the cecum. The overall prep was good in most areas. It was somewhat fair in certain areas. Multiple washings and aspirations were performed. Most areas were fairly well visualized, but there was some limitation. The cecum and ileocecal valve were normal in appearance. The ascending, transverse, descending and sigmoid colon areas that were visualized were all normal. No evidence of colitis. No evidence of bleeding, no blood was noted throughout the exam today. Random biopsies were obtained to rule out microscopic colitis. The rectal mucosa was normal. On retroflexion, small nonbleeding internal hemorrhoids were noted. Close examination of the anal canal showed internal hemorrhoids, but otherwise negative. No evidence of external hemorrhoids or fissure. Again, no evidence of bleeding. The scope was then withdrawn and the procedure terminated. The patient tolerated the procedure well. IMPRESSION: [facility] [address] [place] [address] PROCEDURE REPORT Name: KHOI ROLLINS Room #: 458-P [facility] IN M.R.#: [id number] Admission: 05/01/19 Attend Phys: Glenna Abel Discharge: 05/04/19 Date of : 76 Report #: [id number] 1. Internal hemorrhoids, likely source of recent bright red blood per rectum. No bleeding at this time. 2. Otherwise, normal colonoscopy. No evidence of colitis or other abnormalities. RECOMMENDATIONS: 1. Await biopsy results. 2. Suspect abdominal pain is likely due to chronic pancreatitis. We would continue enzymes. We will add Levsin at this time to be used on a p.r.n. basis. Thank you for allowing me to participate in his care. <ELECTRONICALLY SIGNED> By: Isrrael Amador MD 05/12/19 0811 1349 [id number] Isrrael Amador MD /nt
== END 2019-05-04 19:30 | disposition home or self-care (01) | DRG 378 ==
LOC: ER 20:03 → EROBS 05-01 01:45 → 4W 05-01 01:45
PROVIDERS: Nurse Practitioner Family; ADMIT Hospitalist
PROC: 0DBE8ZX Excision of Large Intestine, Via Natural or Artificial Opening Endoscopic, Diagnostic (ICD-10-PCS; principal; 2019-05-04)
DX: K92.2 Gastrointestinal hemorrhage, unspecified (principal); K86.1 Other chronic pancreatitis; I42.8 Other cardiomyopathies; F11.20 Opioid dependence, uncomplicated; B20 Human immunodeficiency virus [HIV] disease; I10 Essential (primary) hypertension; F32.9 Major depressive disorder, single episode, unspecified; F41.9 Anxiety disorder, unspecified; K64.8 Other hemorrhoids; G89.29 Other chronic pain; R10.9 Unspecified abdominal pain; F10.10 Alcohol abuse, uncomplicated; F17.210 Nicotine dependence, cigarettes, uncomplicated; D50.9 Iron deficiency anemia, unspecified; Z65.8 Other specified problems related to psychosocial circumstances; Z88.6 Allergy status to analgesic agent; Z88.8 Allergy status to other drugs, medicaments and biological substances
CPT/HCPCS: 10040; 62110; 62900; 70005

== ENCOUNTER 2019-05-07 03:48 | Emergency (ER) | payer OTHER ==
[~2019-05-07] VITALS: Ht 182.9 cm; Wt 65.8 kg
[~2019-05-07 03:48] MED LIST changes: +HYOSCYAMINE0.125 M1 PO; +PRENATAL PO; +VITAMIN B-1100 M2 PO
[2019-05-07] MEDS ORDERED: PROTONIX 20 MG20 MG PO (04:15)
[2019-05-07 05:35] LABS: ABSOLUTE NEUTROPHILS 1.9 thou/uL (1.4-8.2); BASOPHILS 2.9 % (0.0-2.0); EOSINOPHILS 4.4 % (0.0-3.0); HEMATOCRIT 40.2 % (42.0-52.0); HEMOGLOBIN 13.1 gm/dL (14.0-18.0); LYMPHOCYTES 42.5 % (24.0-44.0); MCH 28.9 pg (26.0-34.0); MCHC 32.6 g/dL (28.0-37.0); MCV 88.7 fL (80.0-100.0); MONOCYTES 10.1 % (1.0-8.0); PLATELET COUNT 237 thou/uL (150-400); POLYS 40.1 % (36.0-66.0); RBC 4.53 mil/uL (4.50-6.00); RDW 19.2 % (10.5-14.5); WBC 4.6 thou/uL (4.0-11.0)
[2019-05-07 05:44] LABS: ANION GAP 11 mmol/L (7-16); BUN 8 mg/dL (7-18); CALCIUM 9.3 mg/dL (8.5-10.1); CHLORIDE 104 mmol/L (98-107); CO2 26 mmol/L (21-32); CREATININE 0.7 mg/dL (0.7-1.3); GLUCOSE 96 mg/dL (74-106); POTASSIUM 4.7 mmol/L (3.5-5.1); SODIUM 141 mmol/L (136-145)
[2019-05-07 05:54] LABS: LIPASE 110 U/L (73-393); TROPONIN-I <0.06 ng/mL (<0.06)
[2019-05-07 06:10] VITALS: BP 115/81
[2019-05-07 06:14] LABS: AMP/METHAMP Negative (Negative); BARBITURATES Negative (Negative); BENZODIAZEPINES Negative (Negative); COCAINE Negative (Negative); METHADONE Negative (Negative); OPIATES Negative (Negative); PCP POSITIVE (Negative)
== END 2019-05-07 06:15 | disposition home or self-care (01) ==
LOC: ER 03:48
PROVIDERS: Emergency Medicine
DX: F10.129 Alcohol abuse with intoxication, unspecified (principal); R10.9 Unspecified abdominal pain; I10 Essential (primary) hypertension; F32.9 Major depressive disorder, single episode, unspecified; F41.9 Anxiety disorder, unspecified; F17.210 Nicotine dependence, cigarettes, uncomplicated; Z21 Asymptomatic human immunodeficiency virus [HIV] infection status; Z88.6 Allergy status to analgesic agent; Z88.5 Allergy status to narcotic agent

== ENCOUNTER 2019-05-29 05:57 | Emergency (ER) | payer OTHER ==
[~2019-05-29] VITALS: Ht 190.5 cm; Wt 68.2 kg
[~2019-05-29 05:57] MED LIST changes: +PROTONIX 20 MG20 MG PO
[2019-05-29 08:23] LABS: HEMATOCRIT 39.1 % (42.0-52.0); HEMOGLOBIN 12.6 gm/dL (14.0-18.0); MCH 28.7 pg (26.0-34.0); MCHC 32.3 g/dL (28.0-37.0); MCV 88.8 fL (80.0-100.0); PLATELET COUNT 230 thou/uL (150-400); RDW 16.2 % (10.5-14.5); WBC 4.1 thou/uL (4.0-11.0)
[2019-05-29 08:48] LABS: ALBUMIN 3.9 g/dL (3.4-5.0); ANION GAP 10 mmol/L (7-16); BUN 4 mg/dL (7-18); CHLORIDE 100 mmol/L (98-107); CO2 22 mmol/L (21-32); CREATININE 0.9 mg/dL (0.7-1.3); DIRECT BILIRUBIN < 0.1 mg/dL (<0.1-0.2); GLUCOSE 74 mg/dL (74-106); LIPASE 117 U/L (73-393); SGOT 56 U/L (15-37); SGPT 33 U/L (30-65); SODIUM 132 mmol/L (136-145); TOTAL BILIRUBIN 0.2 mg/dL (<0.1-1.0); TOTAL PROTEIN 8.2 g/dL (6.4-8.2)
[2019-05-29 08:53] LABS: CALCIUM 9.2 mg/dL (8.5-10.1)
[2019-05-29 09:07] LABS: URINE BILIRUBIN NEGATIVE (Negative); URINE BLOOD 1+ (Negative); URINE CLARITY CLEAR; URINE COLOR YELLOW; URINE GLUCOSE-RANDOM* NEGATIVE (Negative); URINE KETONES TRACE (Negative); URINE NITRITE-REFLEX NEGATIVE (Negative); URINE PROTEIN (DIPSTICK) 2+ (Negative); URINE SPECIFIC GRAVITY 1.025 (1.005-1.035); URINE UROBILINOGEN 0.2 E.U./dl (0.2-1.0)
[2019-05-29 09:12] LABS: URINE LEUKOCYTES-REFLEX 1+ (Negative)
[2019-05-29 09:17] LABS: AMP/METHAMP Negative (Negative); BARBITURATES Negative (Negative); BENZODIAZEPINES Negative (Negative); COCAINE Negative (Negative); METHADONE Negative (Negative); OPIATES Negative (Negative); PCP POSITIVE (Negative)
[2019-05-29 09:24] LABS: CASTS None Seen /LPF (None Seen); CRYSTALS None Seen /LPF (None Seen); SQUAMOUS 0-3 Few /LPF (0-3); URINE WBC-REFLEX 0-5 Rare /HPF (0-5)
[2019-05-29 09:25] LABS: BACTERIA-REFLEX 1-9 Few /HPF (None Seen); URINE RBC 0-2 Rare /HPF (0-2)
[2019-05-29 09:46] LABS: ABSOLUTE NEUTROPHILS 2.6 thou/uL (1.4-8.2); PLATELET ESTIMATE NORMAL
[2019-05-29] MEDS ORDERED: ZOFRAN ODT4 MG PO (11:19)
[2019-05-29] MEDS ORDERED: TRAMADOL 50 MG50 MG PO (11:19)
[2019-05-29 12:15] VITALS: BP 137/95
== END 2019-05-29 12:16 | disposition home or self-care (01) ==
LOC: ER 05:57
PROVIDERS: Emergency Medicine
DX: K86.1 Other chronic pancreatitis (principal); F10.10 Alcohol abuse, uncomplicated; I10 Essential (primary) hypertension; F32.9 Major depressive disorder, single episode, unspecified; F41.9 Anxiety disorder, unspecified; Z21 Asymptomatic human immunodeficiency virus [HIV] infection status; F17.210 Nicotine dependence, cigarettes, uncomplicated; Z88.6 Allergy status to analgesic agent; Z88.5 Allergy status to narcotic agent; Z88.8 Allergy status to other drugs, medicaments and biological substances

== ENCOUNTER 2019-06-04 15:49 | Inpatient (IN) | payer OTHER ==
[~2019-06-04] VITALS: Ht 182.9 cm; Wt 68.0 kg
[2019-06-04 15:54] VITALS: BP 125/94
[2019-06-04 18:39] LABS: ABSOLUTE NEUTROPHILS 9.4 thou/uL (1.4-8.2); BASOPHILS 0.2 % (0.0-2.0); EOSINOPHILS 0.1 % (0.0-3.0); HEMATOCRIT 40.4 % (42.0-52.0); HEMOGLOBIN 13.1 gm/dL (14.0-18.0); LYMPHOCYTES 11.5 % (24.0-44.0); MCH 28.4 pg (26.0-34.0); MCHC 32.6 g/dL (28.0-37.0); MCV 87.2 fL (80.0-100.0); MONOCYTES 6.9 % (1.0-8.0); PLATELET COUNT 189 thou/uL (150-400); POLYS 81.3 % (36.0-66.0); RBC 4.63 mil/uL (4.50-6.00); RDW 16.4 % (10.5-14.5); WBC 11.6 thou/uL (4.0-11.0)
[2019-06-04 18:50] LABS: CALCIUM 9.3 mg/dL (8.5-10.1); CREATININE 0.9 mg/dL (0.7-1.3); POTASSIUM 3.3 mmol/L (3.5-5.1)
[2019-06-04 18:56] LABS: ALBUMIN 3.5 g/dL (3.4-5.0); TOTAL BILIRUBIN 0.3 mg/dL (<0.1-1.0); TOTAL PROTEIN 8.6 g/dL (6.4-8.2)
[2019-06-04 22:07] VITALS: BP 125/89
[2019-06-04] MEDS ORDERED: STRIBILD TABLE1 EACH PO (22:30)
[2019-06-04] MEDS ORDERED: COZAAR 25 MG TA25 M1 PO (22:31)
[2019-06-04] MEDS ORDERED: CARVEDILOL12.5 MG PO (22:32)
--- NOTE | 2019-06-05 00:34 | NUR ---
PT ADMITTED WITH PNEUMONIA, HE STATED THAT HE WAS TOLD THAT HE HAD PNEUMONIA 2 MONITHS AGO AND ONLY TOOK PART OF THE ANTIBIOTIC TREATMENT ORDERED. HE REPORTS THAT HE IS A DAILY DRINKER, AND USUALLY DRINKS ABOUT A SIX PACK DAILY. IV ANTIBIOTICS STARTED, AND PO ATIVAN STARTED. HE HAS PAIN IN HIS RIBS AND ABDOMEN FROM COUGHING. PO PAIN MEDICATION GIVEN. HE STATED THAT HE NO LONGER HAS AN INFECTIOUS DISEASE DOCTOR AND JUST GETS REGULAR REFILLS ON HIS HIV MEDICATION. HE STATED THAT HE USUALLY TAKES HIS HIV MEDICATION PRESCRIBED, BUT DID MISS HIS DOSE ON 06/04/2019 DUE TO NOT FEELING WELL. STRONG STEADY GAIT, COOPERATIVE WITH CALLING FOR ASSIST BEFOER OUT OF BED. HE COUGHED UP SOME REDDISH SPUTUM INTO TOILET.
[2019-06-05 01:54] LABS: HEMATOCRIT 36.1 % (42.0-52.0); HEMOGLOBIN 11.5 gm/dL (14.0-18.0); MCH 28.2 pg (26.0-34.0); RBC 4.1 mil/uL (4.50-6.00); RDW 16.4 % (10.5-14.5); WBC 9.5 thou/uL (4.0-11.0)
[2019-06-05 02:00] LABS: CALCIUM 8.3 mg/dL (8.5-10.1); CREATININE 0.9 mg/dL (0.7-1.3); POTASSIUM 3.7 mmol/L (3.5-5.1)
--- NOTE | 2019-06-05 03:54 | NUR ---
pt threw up some greenish particles and reddsih particles in clear mucous. he is usually coughing forcefully then gags on his sputum. gave him some cough syrup. he is resting quietly at this time.
[2019-06-05 04:35] VITALS: BP 145/61
[2019-06-05 05:12] VITALS: BP 138/82
[2019-06-05] MEDS ORDERED: REMERON30 MG PO (05:19)
[2019-06-05 09:05] VITALS: BP 131/99
[2019-06-05 18:07] VITALS: BP 137/103
--- NOTE | 2019-06-05 18:51 | NUR ---
ASSUMED CARE 0700. ALERT X4, PAIN AND ANXIETY MANAGED WITH PRN MEDICATIONS WHICH PATIENT WILL CALL FOR AT THE 4 HOUR MIRA. DENIES SOB. CONTINENT OF URINE NO BM NOTED AT THIS TIME. UP AB SHANNON IN ROOM. CALLS FOR ASSISTANCE. ST ON TELE
[2019-06-05 19:52] VITALS: BP 138/95
--- NOTE | 2019-06-06 02:30 | NUR ---
ASSESSMENT: PT REMAIN ALERT AND ORIENT TIMES FOUR. UP AD SHANNON TO BR. ASKS FOR PAIN MEDS AND LORAZEPAM EVERY FOUR HOURS PROMPTLY. VSS, AFEBRILE. LACTIC ACID LEVEL IS 1.2 SLOW TO RESPOND TO QUESTIONS. ST PER MONITOR. SLOW PROGRESS TOWARDS DISCHARGE GOALS, WILL CONTINUE TO MONITOR.
[2019-06-06 05:04] VITALS: BP 123/97
[2019-06-06 12:00] VITALS: BP 144/98
--- NOTE | 2019-06-06 14:06 | NUR ---
ASSUMED CARE AT 0700, SHIFT ASSESSMENT DONE, MEDS GIVEN, VSS. REPORTED PAIN TO HIS CHEST AND ABDOMEN, PRN PAIN MEDS GIVEN. ON NORMAL SALINE AND ANTIBIOITCS. WENT FOR CHEST X-RAY THIS AM. DROWSY AT TIMES. NSR ON TELE. UP AD SHANNON, WILL CONTINUE TO ASSESS AND ASSIST WITH ADLs NEEDED.
[2019-06-06 16:00] VITALS: BP 132/93
[2019-06-06 19:41] VITALS: BP 139/89
[2019-06-07 04:11] VITALS: BP 135/100
[2019-06-07 07:58] VITALS: BP 134/97
--- NOTE | 2019-06-07 08:06 | NUR ---
ASSESSMENTS CHARTED, MEDS GIVEN CHARTED. PATIENT REQUESTS PAIN MEDS AND ATIVAN PRIOR TO AVAILABILITY OF EACH DOSE AND REPEATEDLY CALLS UNTIL DOSES ARE GIVEN. C/O PAIN IN RIGHT UPPER QUADRANT OF ABDOMEN AND RIBS, FROM COUGHING 9/10 EACH TIME. UP AT SHANNON IN ROOM.
[2019-06-07 11:12] VITALS: BP 130/96
[2019-06-07 11:12] LABS: CD4 % 35.2 % (30.8-58.5); CD8 % 35.1 % (12.0-35.5)
[2019-06-07 13:06] LABS: HEMATOCRIT 35.1 % (42.0-52.0); HEMOGLOBIN 11.3 gm/dL (14.0-18.0); MCH 28.5 pg (26.0-34.0); MCHC 32.1 g/dL (28.0-37.0); MCV 88.7 fL (80.0-100.0); RBC 3.96 mil/uL (4.50-6.00); WBC 4.4 thou/uL (4.0-11.0)
[2019-06-07 13:15] LABS: CALCIUM 9.1 mg/dL (8.5-10.1); CREATININE 0.7 mg/dL (0.7-1.3); MAGNESIUM 1.8 mg/dL (1.8-2.4); POTASSIUM 3.3 mmol/L (3.5-5.1)
--- NOTE | 2019-06-07 14:44 | NUR ---
0900 pt ambulated room, called out for help, "I'm bleeding" had accidentally pulled out own IV, IV team restarted IV in right upper arm and sent labs. pt eager to smoke, was educated on hospital policy of no leaving the floor to go smoke. nicotine patch on L arm, offered to call MD for gum to help, pt declined. report called to ANUSHKA Pierce on 4S around 1415, pt transferred up shortly after and took his personal belongings.
--- NOTE | 2019-06-07 15:14 | NUR ---
PT ARRIVED TO ROOM 447 AT 1455. ALERT XS4. LUNGS COARSE. ROOM AIR. PT REQUEST FO WATER AND SEVEN UP. V.S. 98.2 20 112 124/88 O2 SAT = 98%RA. PT HAS SCED RESP TX'S.HAS NICOTINE PATCH TO LEFT ARM.
[2019-06-07 19:35] VITALS: BP 137/102
--- NOTE | 2019-06-08 02:05 | NUR ---
ASSUMED PT CARE AT 1900. PT COMPLAINING OF GENERALIZED PAIN REQUESTING MEDS EVERY 2 HRS. I SUSPECT THE PT IS TRYING TO LEAVE THE UNIT, COMES OUT OF ROOM SAYING HE "THOUGHT [HE] HEARD HIS COUSIN OUT HERE" PT ACTS CONFUSED OCCASIONALLY BUT VERY ORIENTED AT OTHER TIMES. WONDERING IF ITS POSSIBLE WITHDRAWAL. ANTIBIOTICS GIVEN ORDERED. NEW IV PUT IN BY IV TEAM TONIGHT. LUNGS SOUNDS SLIGHTLY WHEEZY ON EXPIRATION. WILL CONTINUE TO MONITOR TONIGHT.
[2019-06-08 03:20] VITALS: BP 135/97
[2019-06-08 08:00] VITALS: BP 136/101
--- NOTE | 2019-06-08 10:33 | NUR ---
Assess with dx sepsis, pneumonia. Hx HIV, pancreatitis, gastric ulcers, + etoh use. Wt has been stable at least 1 yr. Generally with good appetite but currently less than 50%. Likes to drink ensure, will order bid.
--- NOTE | 2019-06-08 15:29 | NUR ---
Assumed care approx. 0700 this AM. Pt has been complaining of severe abdominal pain all shift with no pain relief after med administration. Lorazepam PO given with no anxiety relief per pt. Pt specifically requested for 2 mg of dilaudid and 2 mg of ativan. Pt has also been requesting to leave and go smoke all shift, but pt reminded by several staff members that smoking on campus is prohibited. Dr. Be notified of pts requests-no dilaudid or increase in ativan ordered but Dr. Be did come to bedside to reasses the patient and changed the IV morphine order which satisfied the patient. A clear liquid diet order has since then been added. Pt refused enzyme pills at lunch stating there is no point in taking them as he has no appetite and just needs the pain meds. Shayna Singh NP verbally notified on unit that pt refused the enzymes. Will continue to monitor pts needs. Pt doesn't appear to be progressing toward plan of care goals at this time.
[2019-06-08 19:52] VITALS: BP 139/97
--- NOTE | 2019-06-09 01:09 | NUR ---
ASSUMED PT CARE AT 1900. PT FREQ CALLING FOR PAIN MEDICATION WHEN THEY ARE NOT DUE DESPITE HAVING THE TIMES ON THE BOARD. SHOWING SIGNS OF INCREASE CONFUSION, SAYING RN THREW SOMETHING AT HIM, ASKING FOR HIS MORPHINE WHEN IT WAS GIVEN JUST A MINUTE AGO. PERIODICALLY COMES OUT OF ROOM, HAS TO BE REDIRECTED BACK TO BED. UNHOOKED HIMSELF FROM IV LINE INSISTING HE GO OUTSIDE TO SMOKE, EDUCATED ON HOSPITAL POLICY. COMPLAINING OF EYES HURTING/ITCHING EARLIER, BUT SAID THEY FELT FINE NOW. ONLY DRINKING SODA STILL. ANTIBIOTICS HUNG ORDERED. WAS REPORTED HE DID NOT SLEEP MUCH ALL DAY AND STILL HAS NOT SLEPT TONIGHT. WILL CONTINUE TO MONITOR BEHAVIOR AND PAIN.
[2019-06-09 04:38] VITALS: BP 143/115
[2019-06-09 08:50] VITALS: BP 132/106
[2019-06-09 16:09] LABS: ADENOVIRUS Negative (Negative); INFLUENZA A Negative (Negative); INFLUENZA B Negative (Negative); METAPNEUMOVIRUS Negative (Negative); PARAINFLUENZA 1 Negative (Negative); PARAINFLUENZA 2 Negative (Negative); PARAINFLUENZA 3 Negative (Negative); RHINOVIRUS Negative (Negative); RSV A Negative (Negative); RSV B Negative (Negative)
[2019-06-09 19:10] VITALS: BP 154/91
--- NOTE | 2019-06-10 02:28 | NUR ---
ASSESSED AT START OF SHIFT. PT COMPLAINING THAT MORPHINE AND ATIVAN WASN'T GIVEN RIGHT. PER REPORT FROM DAY NURSE AND EMAR SHE DID GIVE HIM. INFORMED PT MEDS ARE DUE EVERY 4HRS AND WILL BRING MEDS SOON ITS READY. ATIVAN AND MORPHINE GIVEN TO PT LATER NO RELIEF. PT HAVING SOME VISUAL AND AUDITORY HALLUCINATION TALKING TO HIS MOM(NOT PRESENT) AND WANTING TO FEED HER. PT DRANK SODA DIDN'T EAT HIS SANDWHICH TRAY GIVEN PT HAD SOME ANTIVIRAL MEDICATION CALLED SCHOOL PHOTOGRAPHS DETAILER SUBSURFACE AUGMENTEE OPERATOR AND INFORMED ABOUT PT CONCERNED. ORDERS PLACED FOR MEDS. PT CLOTHES RANDLE OF CIGRATE ASKED HIM IF HE SMOKED AND HE STATED HE DID SMOKE IN THE BATHROOM. INFORMED PT THAT ITS NOT ALLOWED IN THE HOSPITAL PT SEARCHED AND THIS NURSE FOUND 2 CIGRATE PKG GAVE TO RECIEVING ANUSHKA ROBERTO AND SECURITY CAME AND PICKED IT UP. THIS NURSE ALSO COLLECTED HIS HOME MED AND RECIVING RN SENT TO [facility] TO KEEP. REPORT GIVEN TO SHERRON REVELES TO CONTINUE CARE.
[2019-06-10 04:50] VITALS: BP 136/100
--- NOTE | 2019-06-10 07:11 | NUR ---
RECEIVED STANDING AND CRYING THE MIDDLE OF THE ROOM. PER PT, MOTHER IS IN THE ROOM AND HE MUST TAKE HIS MOTHER HOME. PT HAS H/O ALCOHOL AND DRUG ABUSE AND HIMS IS AWARE OF PT'S CONDITION. PT REQUESTED TO MEET WITH POST HOLE DIGGER ABOUT HIS PAIN REGIMEN THAT HE WANTS DILAUDID PAIN MED INSTEAD OF MORPHINE. [place] HE WAS HAVING VISUAL HALLUCIANTIONS, HE WAS ABLE TO CALL HIS RELATIVIES AND REQUESTED TO BE P/U. NONE OF THE FAMILY MEMBERS AGREED. RECEIVED A REPORT COMING IN THAT PT WAS FOUND IN THE ROOM SMOKING AND HIS CIGARETTES AND ACTUARIAL INTERN WAS CONFISCATED. AROUND 5AM, NOTED PT IN ROOM SMOKING. CALLED PUBLIC SAFETY, STRIPPED HIS ROOM AND CHECKED HIS BODY UNDER PT'S CONSENT AND FOUND ANOTHER PACK OF CIGARETTES AND A ACTUARIAL INTERN. CONFISCATED AND SENT TO SECURITY. STRONGLY ADVISED PT DANGER OF THE ACTION AND PT VERBALIZED UNDERSTANDING. REPORTED TO BRANCH RETAIL EXECUTIVE OF THE EPISODE. BP MEDS RESUMED PER POST HOLE DIGGER ORDER. PT IS ELOPEMENT RISK AND ALL DOORS TO UNIT REMAINED CLOSED. NO S/S ACUTE DISTRESS NOTED OR REPORTED AT THIS TIME. CARE TRNASFEERED TO INCOMING RN AT THIS TIME.
--- NOTE | 2019-06-10 07:37 | NUR ---
PT COMING OUT OF ROOM STATES WANTS TO SMOKE REDIRECTED BACK TO ROOM. NO COUGH NO RESP DISTRESS.
[2019-06-10 08:05] VITALS: BP 137/105
[2019-06-10 09:15] VITALS: BP 137/105
[2019-06-10 11:09] LABS: HEMATOCRIT 35.6 % (42.0-52.0); HEMOGLOBIN 11.3 gm/dL (14.0-18.0); MCH 28.4 pg (26.0-34.0); MCHC 31.7 g/dL (28.0-37.0); MCV 89.4 fL (80.0-100.0); PLATELET COUNT 187 thou/uL (150-400); RBC 3.98 mil/uL (4.50-6.00)
[2019-06-10 11:23] LABS: CREATININE 0.8 mg/dL (0.7-1.3)
[2019-06-10 11:29] LABS: POTASSIUM 2.9 mmol/L (3.5-5.1)
--- NOTE | 2019-06-10 11:58 | NUR ---
PT IS IN ROOM HAS TO BE REDIRECTED BACK TO ROOM. SECURITY HERE ON UNIT. LAB CALLED WITH CRITICAL KCL 2.9 DR RAMIREZ CALLED AND GAVE ORDERS FOR KCL 40 MEQ PO XS 1. ALSO DC IV ACSESS. AND EDUCATE PATIENT THAT IF HE LEAVES UNIT WILL NOT BE ALLOWED BACK.
--- NOTE | 2019-06-10 12:55 | NUR ---
PATIENT SIGNED AMA PAPER AND PACKED BELONINGS AND WITH STAFF MEMBER WENT TO GET LOCKED BELONGINGS WHICH IS CIG AND MGMT CONSULTANT. ALSO STAFF MEMBER WENT WITH PATIENT TO PHARMACY FOR ANY HOME MEDS. PT WAS GIVEN KCL 40 MEQ AND NOON PILLS. PT HAD TRAMADOL EARLIER SEE JUL.
[2019-06-10 13:13] LABS: ABSOLUTE NEUTROPHILS 1.9 thou/uL (1.4-8.2); PLATELET ESTIMATE NORMAL
== END 2019-06-10 13:00 | disposition left against medical advice (07) | DRG 871 ==
LOC: ER 15:49 → EROBS 20:54 → 2N 20:54 → ENTRNSPT 06-07 14:27 → EDTRNSPTSTS 06-07 14:29 → 4S 06-07 14:36
PROVIDERS: Hospitalist; Nurse Practitioner Family; Physician Assistant; Specialist; ADMIT Internal Medicine
DX: A41.9 Sepsis, unspecified organism (principal); J18.9 Pneumonia, unspecified organism; I42.9 Cardiomyopathy, unspecified; K86.0 Alcohol-induced chronic pancreatitis; R65.20 Severe sepsis without septic shock; I10 Essential (primary) hypertension; F32.9 Major depressive disorder, single episode, unspecified; F41.9 Anxiety disorder, unspecified; F12.90 Cannabis use, unspecified, uncomplicated; F17.210 Nicotine dependence, cigarettes, uncomplicated; D50.9 Iron deficiency anemia, unspecified; Z53.29 Procedure and treatment not carried out because of patient's decision for other reasons; Z88.6 Allergy status to analgesic agent; Z88.8 Allergy status to other drugs, medicaments and biological substances; Z71.6 Tobacco abuse counseling; Z71.41 Alcohol abuse counseling and surveillance of alcoholic
CPT/HCPCS: 10081; 10102

== ENCOUNTER 2019-07-06 18:38 | Emergency (ER) | payer OTHER ==
[~2019-07-06] VITALS: Ht 182.9 cm; Wt 63.5 kg
[~2019-07-06 18:38] MED LIST changes: +CARVEDILOL12.5 MG PO; +MUCINEX600 MG PO; +REMERON30 MG PO
[2019-07-06 21:51] LABS: BASOPHILS 0.9 % (0.0-2.0); EOSINOPHILS 3.9 % (0.0-3.0); HEMATOCRIT 33.3 % (42.0-52.0); HEMOGLOBIN 10.5 gm/dL (14.0-18.0); LYMPHOCYTES 38.9 % (24.0-44.0); MCH 27.5 pg (26.0-34.0); MCHC 31.5 g/dL (28.0-37.0); MCV 87.2 fL (80.0-100.0); MONOCYTES 9.8 % (1.0-8.0); PLATELET COUNT 338 thou/uL (150-400); POLYS 46.5 % (36.0-66.0); RBC 3.81 mil/uL (4.50-6.00); RDW 17.5 % (10.5-14.5); WBC 4.4 thou/uL (4.0-11.0)
[2019-07-06 21:58] LABS: CALCIUM 8.9 mg/dL (8.5-10.1); CREATININE 0.8 mg/dL (0.7-1.3); POTASSIUM 4.7 mmol/L (3.5-5.1)
[2019-07-06 22:00] LABS: URINE BILIRUBIN NEGATIVE (Negative); URINE BLOOD NEGATIVE (Negative); URINE CLARITY CLEAR; URINE COLOR YELLOW; URINE GLUCOSE-RANDOM* NEGATIVE (Negative); URINE KETONES NEGATIVE (Negative); URINE LEUKOCYTES-REFLEX NEGATIVE (Negative); URINE NITRITE-REFLEX NEGATIVE (Negative); URINE PROTEIN (DIPSTICK) NEGATIVE (Negative); URINE SPECIFIC GRAVITY <= 1.005 (1.005-1.035); URINE UROBILINOGEN 0.2 E.U./dl (0.2-1.0)
[2019-07-06 22:11] LABS: ALBUMIN 3.3 g/dL (3.4-5.0); TOTAL BILIRUBIN 0.3 mg/dL (<0.1-1.0); TOTAL PROTEIN 7.5 g/dL (6.4-8.2)
[2019-07-06 23:50] VITALS: BP 124/86
[2019-07-07] MEDS ORDERED: CARAFATE 1 GM TA1 G1 PO (00:02)
== END 2019-07-06 23:49 | disposition home or self-care (01) ==
LOC: ER 18:38
PROVIDERS: Emergency Medicine
DX: R10.13 Epigastric pain (principal); R11.2 Nausea with vomiting, unspecified; G89.29 Other chronic pain; I10 Essential (primary) hypertension; B20 Human immunodeficiency virus [HIV] disease; F32.9 Major depressive disorder, single episode, unspecified; F41.9 Anxiety disorder, unspecified; F17.210 Nicotine dependence, cigarettes, uncomplicated; Z88.6 Allergy status to analgesic agent; Z88.8 Allergy status to other drugs, medicaments and biological substances

== ENCOUNTER 2019-07-11 20:35 | Emergency (ER) | payer OTHER ==
[~2019-07-11] VITALS: Ht 182.9 cm; Wt 64.0 kg
[~2019-07-11 20:35] MED LIST changes: +CARAFATE 1 GM TA1 G1 PO
[2019-07-11 22:28] VITALS: BP 141/104
== END 2019-07-11 22:29 | disposition home or self-care (01) ==
LOC: ER 20:35
DX: S92.424A Nondisplaced fracture of distal phalanx of right great toe, initial encounter for closed fracture (principal); S16.1XXA Strain of muscle, fascia and tendon at neck level, initial encounter; S20.212A Contusion of left front wall of thorax, initial encounter; K86.1 Other chronic pancreatitis; F10.10 Alcohol abuse, uncomplicated; I10 Essential (primary) hypertension; F41.9 Anxiety disorder, unspecified; F32.9 Major depressive disorder, single episode, unspecified; F17.210 Nicotine dependence, cigarettes, uncomplicated; Z88.6 Allergy status to analgesic agent; Z88.8 Allergy status to other drugs, medicaments and biological substances; W10.9XXA Fall (on) (from) unspecified stairs and steps, initial encounter; Y92.89 Other specified places as the place of occurrence of the external cause; Y93.89 Activity, other specified; Y99.8 Other external cause status

== ENCOUNTER 2019-07-21 10:52 | Inpatient (IN) | payer OTHER ==
[~2019-07-21] VITALS: Ht 182.9 cm; Wt 63.9 kg
[2019-07-21 10:53] VITALS: BP 134/92
[2019-07-21] MEDS ORDERED: STRIBILD TABLE1 EACH PO (11:49)
[2019-07-21 12:29] LABS: ABSOLUTE NEUTROPHILS 3.6 thou/uL (1.4-8.2); BASOPHILS 1.2 % (0.0-2.0); EOSINOPHILS 1.6 % (0.0-3.0); HEMATOCRIT 35.9 % (42.0-52.0); HEMOGLOBIN 11.2 gm/dL (14.0-18.0); LYMPHOCYTES 26.6 % (24.0-44.0); MCHC 31.2 g/dL (28.0-37.0); MCV 86.4 fL (80.0-100.0); MONOCYTES 9.6 % (1.0-8.0); PLATELET COUNT 146 thou/uL (150-400); RBC 4.15 mil/uL (4.50-6.00); RDW 18.1 % (10.5-14.5)
[2019-07-21 12:35] LABS: CALCIUM 9.4 mg/dL (8.5-10.1); CREATININE 0.8 mg/dL (0.7-1.3); POTASSIUM 3.9 mmol/L (3.5-5.1)
[2019-07-21 12:39] LABS: ALBUMIN 3.7 g/dL (3.4-5.0); TOTAL BILIRUBIN 0.2 mg/dL (<0.1-1.0)
[2019-07-21 13:03] LABS: URINE BILIRUBIN NEGATIVE (Negative); URINE BLOOD NEGATIVE (Negative); URINE CLARITY CLEAR; URINE COLOR YELLOW; URINE GLUCOSE-RANDOM* NEGATIVE (Negative); URINE KETONES NEGATIVE (Negative); URINE LEUKOCYTES-REFLEX NEGATIVE (Negative); URINE NITRITE-REFLEX NEGATIVE (Negative); URINE PROTEIN (DIPSTICK) NEGATIVE (Negative); URINE SPECIFIC GRAVITY <= 1.005 (1.005-1.035); URINE UROBILINOGEN 0.2 E.U./dl (0.2-1.0)
[2019-07-21 13:14] LABS: AMP/METHAMP Negative (Negative); BARBITURATES Negative (Negative); BENZODIAZEPINES Negative (Negative); COCAINE Negative (Negative); METHADONE Negative (Negative); OPIATES POSITIVE (Negative); PCP Negative (Negative)
[2019-07-21 13:35] LABS: ANISOCYTOSIS 1+; PLATELET ESTIMATE NORMAL
[2019-07-21] MEDS ORDERED: OXYCODONE HCL 55 MG PO (13:46)
[2019-07-21] MEDS ORDERED: TRAZODONE HCL50 MG PO (13:46)
--- NOTE | 2019-07-21 20:28 | NUR ---
PT ARRIVED ON UNIT AT APPROX 1800 FROM FROM SURGERY. ADMISSION ASSESSMENTS COMPLETE. GAVE REPORT TO ON COMING NURSE.
[2019-07-22] VITALS (7 sets, daily range): BP systolic 133–167; BP diastolic 93–163
--- NOTE | 2019-07-22 03:53 | NUR ---
ASSUMED PT CARE AT 1900, PT IS A&OX4, PT IS SR ON THE MONITOR, ASSESSMENTS CHARTED, PT IS NON- COOPERATIVE WITH CARE AND CALLS OFTEN FOR HAYDER AND APPLE JUICE, COUPLE GIVEN AND TOLD NOT TO TAKE ANYMORE DUE TO HIS COMPLAINS OF UNRELIEVED ABDOMINAL PAIN, PT WALKS TO THE FAMILY WAITING ROOM AND TAKES COFFEE, COMPLAINS OF CONSTANT ABDOMINAL PAIN, PAIN MEDICATION GIVEN WITH PARTIAL RELIEF, PT IS ABDOMEN IS DISTENDED, 4LAP SIDES CDI, FLUIDS RUNNING PRESCRIBED, BEEN UP THE WHOLE NIGHT, WILL CONTINUE TO MONITOR
[2019-07-22 06:06] LABS: ABSOLUTE NEUTROPHILS 4.5 thou/uL (1.4-8.2); BASOPHILS 0.3 % (0.0-2.0); HEMATOCRIT 31.9 % (42.0-52.0); HEMOGLOBIN 10.1 gm/dL (14.0-18.0); LYMPHOCYTES 14.6 % (24.0-44.0); MCH 27.4 pg (26.0-34.0); MCHC 31.6 g/dL (28.0-37.0); MCV 86.7 fL (80.0-100.0); MONOCYTES 9.4 % (1.0-8.0); PLATELET COUNT 141 thou/uL (150-400); POLYS 75.7 % (36.0-66.0); RBC 3.68 mil/uL (4.50-6.00); RDW 18.6 % (10.5-14.5); WBC 5.9 thou/uL (4.0-11.0)
--- NOTE | 2019-07-22 14:56 | NUR ---
REPORT RECEIVED FROM ANUSHKA SARGENT, PT LYING IN BED, ASSESSED, RESTLESS, AND ASKING FOR PAIN MEDS, SAYS, ABDOMINAL PAIN IS 10/10. DR MCMANUS IN TO SEE PT, CHANGED PAIN MEDS, PT HAD RECEIVED 4ML OF MORPHINE AND RECEIVED 0.5MG DILAUDID AN HOUR LATER, PO PAIN MEDS GIVEN MUCH POSSIBLE PER GUIDLINES, PT STILL C/O PAIN 9/10. DILAUDID AND ATIVAN GIVEN IV, 40 MIN LATER IV INFILTRATED, R FA IV REMOVED, PT COMPLAINS THAT HE DIDN'T GET THE DILAUDED AND WANTS MORE "0.5MG IS NOT ENOUGH TO HELP." BROUGHT A NORCO TO PT, AND HE REFUSED, "ONLY DILAUDED HELPS. THAT MAY UPSET MY STOMACH." WILL MONITOR AND GIVE PAIN MEDS AVAILABLE.
--- NOTE | 2019-07-22 17:06 | NUR ---
Case opened to follow for dc planning. Pt well known to cm from recent admissions. Pt is being treated for pancreatitis. Consult rec'd for bridge advocate. Discussed with the pt at bedside. He is a&ox4 and indicates that he feels safe to return home at [facility]. He lives with his Aunt and cousins. He has hx of ethol abuse and is HIV+. He [place] for scripts at [place] and he [facility] He will need a cab ride at [place]. He is up ad bryon and denies any dc needs at this time. His main c/o today is stomach pain. Nursing updated. The pt denies need for any substance abuse resources. Encouragement given to f/u with the [facility]3] for HIV cm and support.
--- NOTE | 2019-07-23 01:15 | NUR ---
ASSUMED CARE OF PATIENT AT 1900. VSS, AFEBRILE. CALLING OUT EVERY 30 MINUTES FOR PAIN MEDS. EDUCATED ON WHEN MEDS WERE ABLE TO BE GIVEN. REPEATEDLY OUT OF BED, OUT TO NURSING STATION REQUESTING RANDOM FOOD ITEMS. INSTRUCTED TO STAY IN BED, HAD RIGHT EJ IV IN PLACE, WAS WORRIED HE WOULD RIP IT OUT. PATIENT DID END UP DISPLACING IT. [address] NEW IV UNSUCCESFUL. ASKED IF HE WOULD BE AGREEABLE TO PO PAIN MEDICATION. REFUSED. NURSE ALSO TOLD HIM THAT IF HE LEFT THE UNIT, HE WOULD BE CONSIDERED ELOPED. AT 2330, PATIENT GOT DRESSED, STARTED WALKING TOWARDS THE EXIT. THIS RN REMINDED HIM THAT IF HE LEFT THE UNIT IT WOULD BE ELOPMENT. HE PROCEDED TO LEAVE AND RETURNED 5 MINUTES LATER. THIS RN CALLED SECURITY, USER INTERFACE DESIGNER AND NURSE PRACTIONER. PATIENT REFUSED TO COOPERATE WITH CARE OR BOUNDARIES SET. ESCORTED OUT BY SECURITY.
== END 2019-07-22 23:35 | disposition left against medical advice (07) | DRG 327 ==
LOC: ER 10:52 → EROBS 13:49 → 2N 13:49
PROVIDERS: Nurse Practitioner; Physician Assistant; ADMIT Hospitalist
PROC: 0DJ04ZZ Inspection of Upper Intestinal Tract, Percutaneous Endoscopic Approach (ICD-10-PCS; principal; 2019-07-21)
DX: K56.609 Unspecified intestinal obstruction, unspecified as to partial versus complete obstruction (principal); I42.8 Other cardiomyopathies; I10 Essential (primary) hypertension; K56.2 Volvulus; F32.9 Major depressive disorder, single episode, unspecified; F41.9 Anxiety disorder, unspecified; F10.10 Alcohol abuse, uncomplicated; D50.9 Iron deficiency anemia, unspecified; D69.6 Thrombocytopenia, unspecified; G89.29 Other chronic pain; R10.9 Unspecified abdominal pain; Z28.21 Immunization not carried out because of patient refusal; Z88.6 Allergy status to analgesic agent; Z88.8 Allergy status to other drugs, medicaments and biological substances; Z79.899 Other long term (current) drug therapy
CPT/HCPCS: 10081; 50010; 50101; 50249; 50386; 50555; 52265; 53307; 54118; 56462; 56526; 57092; 70005

== ENCOUNTER 2019-07-24 20:51 | Emergency (ER) | payer OTHER ==
[~2019-07-24] VITALS: Ht 182.9 cm; Wt 63.5 kg
[2019-07-24 21:23] LABS: ABSOLUTE NEUTROPHILS 2.4 thou/uL (1.4-8.2); BASOPHILS 1.4 % (0.0-2.0); EOSINOPHILS 2.2 % (0.0-3.0); HEMATOCRIT 35.6 % (42.0-52.0); HEMOGLOBIN 11.4 gm/dL (14.0-18.0); MCH 27.5 pg (26.0-34.0); MCHC 32.1 g/dL (28.0-37.0); MCV 85.8 fL (80.0-100.0); MONOCYTES 11.1 % (1.0-8.0); PLATELET COUNT 214 thou/uL (150-400); POLYS 45.3 % (36.0-66.0); RBC 4.15 mil/uL (4.50-6.00); RDW 18.7 % (10.5-14.5); WBC 5.3 thou/uL (4.0-11.0)
[2019-07-24 22:34] LABS: CALCIUM 8.8 mg/dL (8.5-10.1)
[2019-07-24 22:40] LABS: ALBUMIN 3.3 g/dL (3.4-5.0); TOTAL BILIRUBIN 0.7 mg/dL (<0.1-1.0); TOTAL PROTEIN 7.4 g/dL (6.4-8.2)
[2019-07-25] MEDS ORDERED: TRAMADOL 50 MG50 MG PO (00:50)
[2019-07-25 00:51] VITALS: BP 121/70
== END 2019-07-25 01:41 | disposition home or self-care (01) ==
LOC: ER 20:51
PROVIDERS: Emergency Medicine Emergency Medical Services
DX: K52.9 Noninfective gastroenteritis and colitis, unspecified (principal); R11.2 Nausea with vomiting, unspecified; I10 Essential (primary) hypertension; F32.9 Major depressive disorder, single episode, unspecified; F41.9 Anxiety disorder, unspecified; F17.210 Nicotine dependence, cigarettes, uncomplicated; Z21 Asymptomatic human immunodeficiency virus [HIV] infection status; Z88.6 Allergy status to analgesic agent

== ENCOUNTER 2019-07-27 00:40 | Emergency (ER) | payer OTHER ==
[~2019-07-27] VITALS: Ht 182.9 cm; Wt 63.5 kg
[2019-07-27 01:46] LABS: ABSOLUTE NEUTROPHILS 4.8 thou/uL (1.4-8.2); BASOPHILS 1.1 % (0.0-2.0); EOSINOPHILS 2.5 % (0.0-3.0); HEMATOCRIT 48.1 % (42.0-52.0); LYMPHOCYTES 22.8 % (24.0-44.0); MCH 29.2 pg (26.0-34.0); MCHC 33.4 g/dL (28.0-37.0); MCV 87.4 fL (80.0-100.0); MONOCYTES 9.2 % (1.0-8.0); PLATELET COUNT 215 thou/uL (150-400); POLYS 64.4 % (36.0-66.0); RDW 13.4 % (10.5-14.5); WBC 7.5 thou/uL (4.0-11.0)
[2019-07-27 01:49] LABS: HEMOGLOBIN 16.1 gm/dL (14.0-18.0)
[2019-07-27 01:55] LABS: ANION GAP 11 mmol/L (7-16); BUN 19 mg/dL (7-18); CALCIUM 9.3 mg/dL (8.5-10.1); CHLORIDE 102 mmol/L (98-107); CO2 25 mmol/L (21-32); GLUCOSE 162 mg/dL (74-106); POTASSIUM 3.9 mmol/L (3.5-5.1); SODIUM 138 mmol/L (136-145)
[2019-07-27 01:58] VITALS: BP 116/83
[2019-07-27 02:01] LABS: DIRECT BILIRUBIN < 0.1 mg/dL (<0.1-0.2); LIPASE 121 U/L (73-393); SGOT 23 U/L (15-37); SGPT 39 U/L (30-65); TOTAL BILIRUBIN 0.7 mg/dL (<0.1-1.0); TOTAL PROTEIN 7.6 g/dL (6.4-8.2)
== END 2019-07-27 01:59 | disposition home or self-care (01) ==
LOC: ER 00:40
PROVIDERS: Emergency Medicine
DX: R10.9 Unspecified abdominal pain (principal); I10 Essential (primary) hypertension; F32.9 Major depressive disorder, single episode, unspecified; F17.210 Nicotine dependence, cigarettes, uncomplicated; F41.9 Anxiety disorder, unspecified; Z88.6 Allergy status to analgesic agent; Z88.8 Allergy status to other drugs, medicaments and biological substances; Z79.899 Other long term (current) drug therapy

== ENCOUNTER 2019-10-06 13:06 | Emergency (ER) | payer OTHER ==
[~2019-10-06] VITALS: Ht 182.9 cm; Wt 65.8 kg
[2019-10-06 13:55] LABS: URINE BILIRUBIN NEGATIVE (Negative); URINE BLOOD 3+ (Negative); URINE CLARITY CLOUDY; URINE COLOR YELLOW; URINE GLUCOSE-RANDOM* NEGATIVE (Negative); URINE KETONES NEGATIVE (Negative); URINE NITRITE-REFLEX NEGATIVE (Negative); URINE PROTEIN (DIPSTICK) 1+ (Negative); URINE SPECIFIC GRAVITY >= 1.030 (1.005-1.035); URINE UROBILINOGEN 0.2 E.U./dl (0.2-1.0)
[2019-10-06 13:59] LABS: URINE LEUKOCYTES-REFLEX 2+ (Negative)
[2019-10-06 14:03] LABS: AMP/METHAMP Negative (Negative); BARBITURATES Negative (Negative); BENZODIAZEPINES POSITIVE (Negative); COCAINE Negative (Negative); METHADONE Negative (Negative); OPIATES POSITIVE (Negative); PCP POSITIVE (Negative)
[2019-10-06 14:09] LABS: URINE WBC-REFLEX >25 Many /HPF (0-5)
[2019-10-06 14:10] LABS: CASTS None Seen /LPF (None Seen); CRYSTALS None Seen /LPF (None Seen); SQUAMOUS 0-3 Few /LPF (0-3); URINE RBC 3-10 Few /HPF (0-2)
[2019-10-06 14:11] LABS: BACTERIA-REFLEX 1-9 Few /HPF (None Seen)
[2019-10-06 14:28] LABS: HEMATOCRIT 37.4 % (42.0-52.0); HEMOGLOBIN 12.2 gm/dL (14.0-18.0); MCH 28.5 pg (26.0-34.0); MCHC 32.7 g/dL (28.0-37.0); MCV 87.2 fL (80.0-100.0); PLATELET COUNT 309 thou/uL (150-400); RBC 4.29 mil/uL (4.50-6.00); RDW 22.5 % (10.5-14.5); WBC 5.7 thou/uL (4.0-11.0)
[2019-10-06 14:38] LABS: POTASSIUM 4.1 mmol/L (3.5-5.1)
[2019-10-06 14:48] LABS: ALBUMIN 3.3 g/dL (3.4-5.0); TOTAL BILIRUBIN 0.1 mg/dL (<0.1-1.0); TOTAL PROTEIN 7.5 g/dL (6.4-8.2); TROPONIN-I 0.15 ng/mL (<0.06)
[2019-10-06 14:52] LABS: ANISOCYTOSIS 2+; POLYCHROMASIA OCCASIONAL
[2019-10-06] MEDS ORDERED: PROMS25 WY RECTAL (14:53)
--- NOTE | 2019-10-06 15:54 | EKG ---
[facility] [place] [address] ELECTROCARDIOGRAM REPORT Name: KHOI ROLLINS Room #: [facility]#: [id number] Admission: 10/06/19 Attend Phys: Discharge: Date of : 76 Report #: [id number] THIS REPORT FOR: cc: SHANIQUE - Shanda family physician/PCP SHANIQUE - No family physician/PCP Kana Arce MD ~ THIS REPORT FOR: //name// [facility] ED Test Date: 2019-10-06 Test Time: 13:33:37 Pat Name: KHOI ROLLINS Department: Room: Gender: Principal Accounts Clerk: [facility] : 1980 Requested By: Ernst Clayton Order Number: [id number] MD: Kana Arce Measurements Intervals Diana Rate: 94 P: 76 GA: 145 QRS: 48 QRSD: 88 T: 66 QT: 358 QTc: 448 Interpretive Statements Sinus rhythm Left atrial enlargement Baseline wander in lead(s) V3,V4 Compared to ECG 06/18/2019 00:09:02 Electronically Signed On 10-06-2019 15:52:51 CDT by Kana Arce [email or web address] <ELECTRONICALLY SIGNED> By: Kana Arce MD 10/06/19 1552 1333 1333 Kana Arce MD /EPI
[2019-10-06 16:50] VITALS: BP 115/94
== END 2019-10-06 17:01 | disposition home or self-care (01) ==
LOC: ER 13:06
PROVIDERS: Emergency Medicine
DX: K86.1 Other chronic pancreatitis (principal); F16.10 Hallucinogen abuse, uncomplicated; F11.20 Opioid dependence, uncomplicated; N34.2 Other urethritis; R11.2 Nausea with vomiting, unspecified; R10.84 Generalized abdominal pain; E46 Unspecified protein-calorie malnutrition; I10 Essential (primary) hypertension; B20 Human immunodeficiency virus [HIV] disease; G89.29 Other chronic pain; F32.9 Major depressive disorder, single episode, unspecified; F41.9 Anxiety disorder, unspecified; F17.210 Nicotine dependence, cigarettes, uncomplicated; Z68.1 Body mass index [BMI] 19.9 or less, adult; Z88.8 Allergy status to other drugs, medicaments and biological substances

== ENCOUNTER 2019-10-23 00:18 | Emergency (ER) | payer OTHER ==
[~2019-10-23] VITALS: Ht 182.9 cm; Wt 65.8 kg
[2019-10-23 00:23] VITALS: BP 103/82
[2019-10-23 01:38] LABS: ABSOLUTE NEUTROPHILS 2.2 thou/uL (1.4-8.2); BASOPHILS 2.4 % (0.0-2.0); EOSINOPHILS 2.9 % (0.0-3.0); HEMATOCRIT 45.4 % (42.0-52.0); LYMPHOCYTES 35.1 % (24.0-44.0); PLATELET COUNT 125 thou/uL (150-400); POLYS 52.6 % (36.0-66.0); RBC 5.17 mil/uL (4.50-6.00); RDW 22.9 % (10.5-14.5); WBC 4.2 thou/uL (4.0-11.0)
[2019-10-23 01:45] LABS: ANION GAP 14 mmol/L (7-16); BUN 5 mg/dL (7-18); CALCIUM 8.6 mg/dL (8.5-10.1); CHLORIDE 96 mmol/L (98-107); CO2 22 mmol/L (21-32); CREATININE 0.9 mg/dL (0.7-1.3); GLUCOSE 89 mg/dL (74-106); POTASSIUM 3.9 mmol/L (3.5-5.1); SODIUM 132 mmol/L (136-145)
[2019-10-23 01:51] LABS: ALBUMIN 3.8 g/dL (3.4-5.0); LIPASE 90 U/L (73-393); SGOT 42 U/L (15-37); SGPT 23 U/L (30-65); TOTAL BILIRUBIN 0.2 mg/dL (0.2-1.0); TOTAL PROTEIN 8.4 g/dL (6.4-8.2)
[2019-10-23 01:57] LABS: DIRECT BILIRUBIN < 0.1 mg/dL (<0.1-0.2)
== END 2019-10-23 03:47 | disposition home or self-care (01) ==
LOC: ER 00:18
PROVIDERS: Emergency Medicine
DX: F10.20 Alcohol dependence, uncomplicated (principal); R11.2 Nausea with vomiting, unspecified; R10.84 Generalized abdominal pain; I10 Essential (primary) hypertension; F17.210 Nicotine dependence, cigarettes, uncomplicated; Z79.899 Other long term (current) drug therapy; Z88.6 Allergy status to analgesic agent; Z88.8 Allergy status to other drugs, medicaments and biological substances; Y90.9 Presence of alcohol in blood, level not specified

== ENCOUNTER 2019-11-13 03:05 | Emergency (ER) | payer OTHER ==
[~2019-11-13] VITALS: Ht 193 cm; Wt 77.1 kg
[2019-11-13 03:29] LABS: HEMATOCRIT 46.9 % (42.0-52.0); HEMOGLOBIN 15.7 gm/dL (14.0-18.0); MCH 30.5 pg (26.0-34.0); MCHC 33.6 g/dL (28.0-37.0); MCV 90.9 fL (80.0-100.0); PLATELET COUNT 146 thou/uL (150-400); RBC 5.16 mil/uL (4.50-6.00); WBC 3.4 thou/uL (4.0-11.0)
[2019-11-13 04:04] LABS: ANION GAP 9 mmol/L (7-16); BUN 3 mg/dL (7-18); CALCIUM 8.3 mg/dL (8.5-10.1); CHLORIDE 102 mmol/L (98-107); CO2 26 mmol/L (21-32); CREATININE 0.8 mg/dL (0.7-1.3); GLUCOSE 119 mg/dL (74-106); POTASSIUM 3.3 mmol/L (3.5-5.1); SODIUM 137 mmol/L (136-145)
[2019-11-13 04:10] LABS: ALBUMIN 3.3 g/dL (3.4-5.0); LIPASE 156 U/L (73-393); SGOT 54 U/L (15-37); SGPT 46 U/L (30-65); TOTAL BILIRUBIN 0.1 mg/dL (0.2-1.0); TOTAL PROTEIN 7.2 g/dL (6.4-8.2)
[2019-11-13 04:29] LABS: DIRECT BILIRUBIN < 0.1 mg/dL (<0.1-0.2)
[2019-11-13 04:32] LABS: ABSOLUTE NEUTROPHILS 1.1 thou/uL (1.4-8.2); ANISOCYTOSIS 2+; ATYPICAL LYMPHS 1 %; NUCLEATED RBCS 1 /100WBC
[2019-11-13 06:30] VITALS: BP 93/62
== END 2019-11-13 06:31 | disposition home or self-care (01) ==
LOC: ER 03:05
PROVIDERS: Emergency Medicine
DX: F10.10 Alcohol abuse, uncomplicated (principal); K86.1 Other chronic pancreatitis; R11.2 Nausea with vomiting, unspecified; F17.210 Nicotine dependence, cigarettes, uncomplicated; I10 Essential (primary) hypertension; F41.9 Anxiety disorder, unspecified; F32.9 Major depressive disorder, single episode, unspecified; I42.9 Cardiomyopathy, unspecified; F12.10 Cannabis abuse, uncomplicated; Z79.899 Other long term (current) drug therapy; Y90.0 Blood alcohol level of less than 20 mg/100 ml; Z88.6 Allergy status to analgesic agent; Z88.8 Allergy status to other drugs, medicaments and biological substances

== ENCOUNTER 2019-11-24 14:05 | Emergency (ER) | payer OTHER ==
[~2019-11-24] VITALS: Ht 182.9 cm; Wt 64.9 kg
[2019-11-24 14:36] LABS: URINE BILIRUBIN NEGATIVE (Negative); URINE BLOOD NEGATIVE (Negative); URINE CLARITY CLEAR; URINE COLOR YELLOW; URINE GLUCOSE-RANDOM* NEGATIVE (Negative); URINE KETONES NEGATIVE (Negative); URINE LEUKOCYTES-REFLEX NEGATIVE (Negative); URINE NITRITE-REFLEX NEGATIVE (Negative); URINE PROTEIN (DIPSTICK) 1+ (Negative); URINE SPECIFIC GRAVITY <= 1.005 (1.005-1.035); URINE UROBILINOGEN 0.2 E.U./dl (0.2-1.0)
[2019-11-24 14:53] LABS: SQUAMOUS 0-3 Few /LPF (0-3)
[2019-11-24 14:54] LABS: BACTERIA-REFLEX None Seen /HPF (None Seen); CASTS None Seen /LPF (None Seen); CRYSTALS None Seen /LPF (None Seen); URINE RBC None Seen /HPF (0-2); URINE WBC-REFLEX 0-5 Rare /HPF (0-5)
[2019-11-24 16:13] LABS: ABSOLUTE NEUTROPHILS 3.4 thou/uL (1.4-8.2); BASOPHILS 0.4 % (0.0-2.0); EOSINOPHILS 0.1 % (0.0-3.0); HEMATOCRIT 46.9 % (42.0-52.0); HEMOGLOBIN 15.3 gm/dL (14.0-18.0); LYMPHOCYTES 11.7 % (24.0-44.0); MCH 30.3 pg (26.0-34.0); MCHC 32.7 g/dL (28.0-37.0); MCV 92.8 fL (80.0-100.0); MONOCYTES 2.5 % (1.0-8.0); PLATELET COUNT 157 thou/uL (150-400); POLYS 85.3 % (36.0-66.0); RBC 5.05 mil/uL (4.50-6.00); RDW 18.8 % (10.5-14.5)
[2019-11-24 16:21] LABS: CALCIUM 9.5 mg/dL (8.5-10.1); CREATININE 0.9 mg/dL (0.7-1.3); POTASSIUM 3.9 mmol/L (3.5-5.1)
[2019-11-24 16:26] LABS: ALBUMIN 3.8 g/dL (3.4-5.0); TOTAL BILIRUBIN 0.2 mg/dL (0.2-1.0); TOTAL PROTEIN 8.6 g/dL (6.4-8.2)
[2019-11-24] MEDS ORDERED: ZOFRAN ODT4 MG PO (17:48)
[2019-11-24] MEDS ORDERED: NORCO 10-325 T1 EACH PO (17:48)
[2019-11-24] MEDS ORDERED: REGLAN 10 MG TA10 MG PO (17:48)
[2019-11-24 18:02] VITALS: BP 150/95
== END 2019-11-24 18:02 | disposition home or self-care (01) ==
LOC: ER 14:05
PROVIDERS: Nurse Practitioner Family
DX: G89.29 Other chronic pain (principal); R10.84 Generalized abdominal pain; R06.6 Hiccough; R11.2 Nausea with vomiting, unspecified; R19.7 Diarrhea, unspecified; I10 Essential (primary) hypertension; F17.210 Nicotine dependence, cigarettes, uncomplicated; Z21 Asymptomatic human immunodeficiency virus [HIV] infection status; Z79.899 Other long term (current) drug therapy; Z88.5 Allergy status to narcotic agent; Z88.8 Allergy status to other drugs, medicaments and biological substances

== ENCOUNTER 2019-11-26 02:46 | Emergency (ER) | payer OTHER ==
[~2019-11-26] VITALS: Ht 170.2 cm; Wt 68.0 kg
[~2019-11-26 02:46] MED LIST changes: +NORCO 10-325 T1 EACH PO
[2019-11-26 04:38] VITALS: BP 135/92
== END 2019-11-26 05:30 | disposition home or self-care (01) ==
LOC: ER 02:46
DX: G89.29 Other chronic pain (principal); R10.84 Generalized abdominal pain; F10.10 Alcohol abuse, uncomplicated; I10 Essential (primary) hypertension; F11.90 Opioid use, unspecified, uncomplicated; R11.2 Nausea with vomiting, unspecified; F17.210 Nicotine dependence, cigarettes, uncomplicated; Z88.6 Allergy status to analgesic agent; Z88.8 Allergy status to other drugs, medicaments and biological substances; Z76.5 Malingerer [conscious simulation]; Z79.899 Other long term (current) drug therapy; Y90.9 Presence of alcohol in blood, level not specified